=== PATIENT | female | born 1960 | race African-American/Black ===

== ENCOUNTER → 2017-11-13 | Outpatient (CLI) | payer OTHER ==
[2017-11-13 10:48] LABS: HEMATOCRIT 41.1 % (36.0-47.0); HEMOGLOBIN 13.7 g/dL (12.0-15.5); MEAN CORPUSCULAR HEMOGLOBIN 29.2 pg (27.0-33.4); MEAN CORPUSCULAR HGB CONC 33.4 g/dL (32.0-36.0); MEAN CORPUSCULAR VOLUME 88 fl (80-97); RED BLOOD COUNT 4.69 10^6/uL (3.72-5.28); RED CELL DISTRIBUTION WIDTH 14.5 % (11.5-14.0)
[2017-11-13 11:09] LABS: ALANINE AMINOTRANSFERASE 15 U/L (9-52); ALBUMIN 4.5 g/dL (3.5-5.0); ALKALINE PHOSPHATASE 88 U/L (38-126); ANION GAP 10 (5-19); ASPARTATE AMINO TRANSFERASE 22 U/L (14-36); BILIRUBIN,DIRECT 0.3 mg/dL (0.0-0.4); BILIRUBIN,TOTAL 0.4 mg/dL (0.2-1.3); BLOOD UREA NITROGEN 20 mg/dL (7-20); CALCIUM 10.7 mg/dL (8.4-10.2); CARBON DIOXIDE 28 mmol/L (22-30); CHLORIDE 104 mmol/L (98-107); CREATININE RESULT 0.97 mg/dL (0.52-1.25); Direct HDL 52 mg/dL (>40); GLUCOSE 96 mg/dL (75-110); SODIUM 142.1 mmol/L (137-145); TOTAL PROTEIN 7.7 g/dL (6.3-8.2); TRIGLYCERIDES 91 mg/dL (<150)
[2017-11-13 11:19] LABS: DIRECT LDL 80 mg/dL (<100)
[2017-11-13 11:24] LABS: ABSOLUTE EOSINOPHILS# (MANUAL) 0.2 10^3/uL (0.0-0.6); BASOPHILS % (MANUAL) 3 % (0-2); EOSINOPHILS % (MANUAL) 3 % (0-6); HYPOCHROMASIA SLIGHT; LYMPHOCYTES % (MANUAL) 47 % (13-45); POLYCHROMASIA SLIGHT; TOTAL CELLS COUNTED 100
--- NOTE | 2017-11-13 11:26 | RADIOLOGY REPORT (SQ) ---
EXAM DESCRIPTION: CHEST PA/LATERAL COMPLETED DATE/TIME: 11/13/2017 10:14 am REASON FOR STUDY: ABNORMAL WEIGHT LOSS COMPARISON: CT angio chest 12/18/2013 AP chest 07/08/2016 EXAM PARAMETERS: NUMBER OF VIEWS: two views TECHNIQUE: Digital Frontal and Lateral radiographic views of the chest acquired. RADIATION DOSE: NA LIMITATIONS: none FINDINGS: LUNGS AND PLEURA: No opacities, masses or pneumothorax. No pleural effusion. MEDIASTINUM AND HILAR STRUCTURES: No masses or contour abnormalities. HEART AND VASCULAR STRUCTURES: Heart normal size. No evidence for failure. BONES: No acute findings. HARDWARE: None in the chest. OTHER: No other significant finding. IMPRESSION: NO SIGNIFICANT RADIOGRAPHIC FINDING IN THE CHEST. TECHNICAL DOCUMENTATION: JOB ID: [id number] [employer]- All Rights Reserved
== END ==
LOC: CCC 09:32
DX: R63.4 Abnormal weight loss (principal)
CPT/HCPCS: 36415; 71020; 80053; 80061; 84443; 85025

== ENCOUNTER → 2017-12-07 | Outpatient (CLI) | payer OTHER ==
[2017-12-07 13:48] LABS: PHOSPHORUS 3.7 mg/dL (2.5-4.5)
== END ==
LOC: CCC 12:12
DX: E83.52 Hypercalcemia (principal); R74.8 Abnormal levels of other serum enzymes
CPT/HCPCS: 36415; 82306; 82310; 83735; 84100

== ENCOUNTER 2017-12-08 13:32 | Emergency (ER) | payer SELFPAY ==
--- NOTE | 2017-12-08 15:46 | ER Document Report ---
ED General <BLANCA CARLOSSA - Last Filed: 12/08/17 17:05> - General Information source: Patient, Relative TRAVEL OUTSIDE OF THE [place] IN LAST 30 DAYS: No - HPI Patient complains to provider of: depression/SI Onset: Other - few months-off depression meds(cannot afford-no insurance) <BRANDAN HERNANDEZ E - Last Filed: 12/08/17 17:40> - General Chief Complaint: Anxiety Stated Complaint: DIFFICULTY BREATHING Time Seen by Provider: 12/08/17 15:08 - Related Data Allergies/Adverse Reactions: Penicillins Allergy (Mild, Verified 12/08/17 13:58) Sulfa (Sulfonamide Antibiotics) Allergy (Mild, Verified 12/08/17 13:58) Past Medical History - Social History Smoking Status: Current Every Day Smoker Chew tobacco use (# tins/day): Yes - rarely Frequency of alcohol use: None Drug Abuse: None Family History: Hypertension Patient has suicidal ideation: No Patient has homicidal ideation: No - Past Medical History Cardiac Medical History: Reports: Hx Coronary Artery Disease, Hx Hypercholesterolemia, Hx Hypertension Denies: Hx Heart Attack Pulmonary Medical History: Denies: Hx Asthma, Hx Bronchitis, Hx COPD, Hx Pneumonia, Hx Tuberculosis Neurological Medical History: Denies: Hx Cerebrovascular Accident, Hx Seizures Endocrine Medical History: Reports: Hx Diabetes Mellitus Type 1, Hx Diabetes Mellitus Type 2 Renal/ Medical History: Denies: Hx Peritoneal Dialysis Musculoskeltal Medical History: Denies Hx Arthritis Psychiatric Medical History: Reports: Hx Anxiety, Hx Depression Past Surgical History: Reports: Hx Cardiac Catheterization - stent, Hx Coronary Stent, Hx Tubal Ligation. Denies: Hx Hysterectomy, Hx Pacemaker - Immunizations Hx Diphtheria, Pertussis, Tetanus Vaccination: Yes Hx Pneumococcal Vaccination: 11/23/00 <BRANDAN HERNANDEZ E - Last Filed: 12/08/17 17:40> Review of Systems - Review of Systems Constitutional: No symptoms reported EENT: No symptoms reported Cardiovascular: No symptoms reported Respiratory: No symptoms reported Gastrointestinal: No symptoms reported Genitourinary: No symptoms reported Skin: No symptoms reported Neurological/Psychological: Depression <BRANDAN HERNANDEZ E - Last Filed: 12/08/17 17:40> Physical Exam <LIA CARLOS - Last Filed: 01/16/18 17:05> <BRANDAN HERNANDEZ E - Last Filed: 12/08/17 17:40> - Vital signs Vitals: Temp Pulse Resp BP Pulse Ox 97.7 F 91 20 132/71 H 100 12/08/17 13:36 12/08/17 13:36 12/08/17 13:36 12/08/17 13:36 12/08/17 13:36 - Notes Notes: PHYSICAL EXAMINATION: GENERAL: Well-appearing, well-nourished and in no acute distress. HEAD: Atraumatic, normocephalic. EYES: Pupils equal round and reactive to light, extraocular movements intact, conjunctiva are normal. ENT: Nares patent, oropharynx clear without exudates. Moist mucous membranes. NECK: Normal range of motion, supple without lymphadenopathy LUNGS: Breath sounds clear to auscultation bilaterally and equal. No wheezes rales or rhonchi. HEART: Regular rate and rhythm without murmurs ABDOMEN: Soft, nontender, nondistended abdomen. No guarding, no rebound. No masses appreciated. Female : deferred Musculoskeletal: Normal range of motion, no pitting or edema. No cyanosis. NEUROLOGICAL: Cranial nerves grossly intact. Normal speech, normal gait. Normal sensory, motor exams PSYCH: Pressed poor eye contact. No current suicidal ideation or plan SKIN: Warm, Dry, normal turgor, no rashes or lesions noted. (BRANDAN HERNANDEZ) Course - Laboratory Result Diagrams: 12/08/17 16:02 12/08/17 16:02 <LIA CARLOS - Last Filed: 12/08/17 17:05> - Laboratory Result Diagrams: 12/08/17 16:02 12/08/17 16:02 <BRANDAN HERNANDEZ - Last Filed: 12/08/17 17:40> - Re-evaluation Re-evalutation: 12/08/17 17:38 Did discuss with the psych nurse. She stated that the recommendations were Depakote 250 mg p.o. twice daily and BuSpar 5 mg p.o. twice daily. I will write a 7 day prescription. She does have follow-up with private as an outpatient (BRANDAN HERNANDEZ) - Vital Signs Vital signs: Temp Pulse Resp BP Pulse Ox 97.7 F 91 20 132/71 H 100 12/08/17 13:36 12/08/17 13:36 12/08/17 13:36 12/08/17 13:36 12/08/17 13:36 - Laboratory Laboratory results interpreted by me: 12/08/17 12/08/17 12/08/17 16:02 16:02 16:02 RDW 14.4 H Lymphocytes % 50.5 H Creatinine 1.42 H Est GFR ( Amer) 47 L Est GFR (Non-Af Amer) 39 L Calcium 10.8 H Urine Urobilinogen 2.0 H Salicylates < 1.0 L Acetaminophen < 10 L Discharge <LIA CARLOS - Last Filed: 12/08/17 17:05> <BRANDAN HERNANDEZ - Last Filed: 12/08/17 17:40> - Discharge Clinical Impression: Depression, Poor sleep, Suicidal ideation, Has run out of medications Condition: Fair Disposition: HOME, SELF-CARE Instructions: Anxiety ([facility]) Additional Instructions: DEPRESSION: Your evaluation reveals that you have mental depression. While symptoms may be vague, they often include disturbance of sleep, fatigue, loss of appetite , and general loss of interest in life. While depression may be a side effect of drugs, or a reaction to a major change in your life, many cases have no known cause. If depression is acute, and related to a major loss in your life, you can expect it to clear completely with time. If you have been depressed a long time , are prone to repeated bouts of depression or low mood, or have been thinking of suicide, get help. Depression can be treated with anti-depressant medication and counselling. Long-term depression will often take a few weeks to clear, even with appropriate medication. Follow-up care is important. SUICIDAL IDEATION: Suicidal ideation is a common medical term for thoughts about suicide, which may be as detailed as a formulated plan, without the suicidal act itself. Although most people who undergo suicidal ideation do not commit suicide, some go on to make suicide attempts. The range of suicidal ideation varies greatly from fleeting to detailed planning, role playing, and unsuccessful attempts. While thoughts about suicide are common, most people do not carry out serious actions to commit suicide. Based upon your evaluation and discussion with you, we do not believe you are currently at risk to act upon your thoughts of suicide. You have agreed to return to the Emergency Department, at any time , if you feel inclined to act upon your suicidal thoughts. FOLLOW-UP CARE: You have been instructed to contact your provider at [facility] to ensure they have scheduled you for medication management and let them know you have a 7 day script. You have been provided with the outpatient resource list for additional resources. If you experience worsening or a significant change in your symptoms , notify the physician immediately or return to the Emergency Department at any time for re-evaluation. Prescriptions: Buspirone HCl [Buspar 5 mg Tablet] 1 tab PO BID #14 tab Divalproex Sodium [Depakote] 250 mg PO BID #14 tablet. Referrals: Madhu [facility] [Provider Group] - Follow up in 1 week
[2017-12-08 16:47] LABS: ABSOLUTE EOSINOPHILS # (AUTO) 0.2 10^3/uL (0.0-0.6); ABSOLUTE LYMPHOCYTES (AUTO) 3.7 10^3/uL (0.5-4.7); ABSOLUTE MONOCYTES (AUTO) 0.3 10^3/uL (0.1-1.4); ABSOLUTE NEUT (AUTO) 3.1 10^3/uL (1.7-8.2); BASOPHILS % (AUTO) 0.4 % (0-2); EOSINOPHILS % (AUTO) 2.3 % (0-6); HEMATOCRIT 40.5 % (36.0-47.0); HEMOGLOBIN 13.3 g/dL (12.0-15.5); LYMPHOCYTES % (AUTO) 50.5 % (13-45); MEAN CORPUSCULAR HEMOGLOBIN 28.9 pg (27.0-33.4); MEAN CORPUSCULAR HGB CONC 32.8 g/dL (32.0-36.0); MEAN CORPUSCULAR VOLUME 88 fl (80-97); MONOCYTES % (AUTO) 4.2 % (3-13); PLATELET COUNT 399 10^3/uL (150-450); RED BLOOD COUNT 4.59 10^6/uL (3.72-5.28); RED CELL DISTRIBUTION WIDTH 14.4 % (11.5-14.0); SEGMENTED NEUTROPHILS % (AUTO) 42.6 % (42-78); TOTAL CELLS COUNTED % (AUTO) 100 %; WHITE BLOOD COUNT 7.2 10^3/uL (4.0-10.5)
[2017-12-08 17:01] LABS: APPEARANCE,URINE SLIGHTLY-CLOUDY; BILIRUBIN,URINE NEGATIVE (NEGATIVE); COLOR,URINE YELLOW; GLUCOSE, URINE NEGATIVE (NEGATIVE); KETONES,URINE NEGATIVE (NEGATIVE); LEUKOCYTE ESTERASE,URINE NEGATIVE (NEGATIVE); NITRITE,URINE NEGATIVE (NEGATIVE); PROTEIN,URINE NEGATIVE (NEGATIVE); URINE SPECIFIC GRAVITY 1.016
[2017-12-08 17:07] LABS: URINE AMPHETAMINES SCREEN NEGATIVE; URINE BARBITURATES SCREEN NEGATIVE; URINE BENZODIAZEPINES SCREEN NEGATIVE; URINE COCAINE SCREEN NEGATIVE; URINE MARIJUANA (THC) SCREEN NEGATIVE; URINE METHADONE SCREEN NEGATIVE; URINE PHENCYCLIDINE SCREEN NEGATIVE
[2017-12-08 17:08] LABS: ALANINE AMINOTRANSFERASE 21 U/L (9-52); ALKALINE PHOSPHATASE 70 U/L (38-126); ASPARTATE AMINO TRANSFERASE 19 U/L (14-36); CARBON DIOXIDE 28 mmol/L (22-30); GLUCOSE 95 mg/dL (75-110)
[2017-12-08 17:11] LABS: ANION GAP 11 (5-19); CHLORIDE 105 mmol/L (98-107); SODIUM 144.4 mmol/L (137-145)
[2017-12-08 17:13] LABS: ALBUMIN 4.4 g/dL (3.5-5.0); BILIRUBIN,DIRECT 0.2 mg/dL (0.0-0.4); BILIRUBIN,TOTAL 0.3 mg/dL (0.2-1.3); BLOOD UREA NITROGEN 18 mg/dL (7-20); CALCIUM 10.8 mg/dL (8.4-10.2); POTASSIUM 4.1 mmol/L (3.6-5.0)
[2017-12-08 17:19] LABS: ACETAMINOPHEN < 10 ug/mL (10-30); ALCOHOL < 10 mg/dL (NONE DETECTED); SALICYLATE < 1.0 mg/dL (2.0-20.0)
--- NOTE | 2017-12-08 17:33 | PSYCHOLOGICAL NOTE ---
Psych Note - Psych Note Psych Note: Reason for Consult: Off prescribed psychiatric medication for 2-3 months, increased depression, and SI. Contact Permissions: Daughter and at bedside. Patient is a 56 year old female who presented to the ED today via family for having been off medication for 2-3 months, increased depression and SI. She stated she had been going to [facility] for outpatient services, they closed, she transitioned to [facility], and the transition was not smooth. She stated she has been off her prescribed medications (Seroquel, Abilify, Remeron, and Xanax PRN anxiety) for 2-3 months. She stated the medications were effective in managing her symptoms. She noted she received the medication assistance of [facility] so received mail order medication. She stated she had gone to [facility] for 1 visit and had been waiting on a call back, never got one, so last week contacted them, and they thought they had her in the system but did not. She acknowledged she saw Valery for therapy yesterday who submitted request for medication management. She stated she has not been sleeping and commented "even if I can just get a night of sleep." She admitted to a lot of stressors, if she were on her medication she could deal with it, not being on medication makes it seem like these things are more or worse than what they might be, and she described her mind as both blank and racing. She stated "I have this picture in my head of the ocean, where the water meets the melissa, this is my life, nothingness as far as the eye can see." She admitted she hid her MH and not having medications from family. She stated "nobody has a clue how despairing I am and I just want to be back to myself." She reported diagnoses of Major Depressive Disorder, Severe Anxiety, Bipolar and sleep problems. She noted a maternal family history of Bipolar. She denied previous MH hospitalizations. She denied current SI and admitted to having thoughts here and there since being off medications. Patient was alert and oriented to person, place, time and situation. Mood was depressed with congruent affect AEB tearful (at appropriate time) when talking about how she has held it together so long without medication. She denied current SI/HI, admitted to having thoughts here and there since being off medication the past 2-3 months, and denied previous attempts. She did not appear to be responding to internal stimuli AEB fair eye contact, staying on topic, answering questions appropriately when addressed and carrying on dialogue conversation. Thought processes were linear and organized. Conversational speech was WNL for rate, tone and prosody. Intellectual abilities are estimated to be average. Insight, judgment and impulse control are fair AEB processing thoughts and feelings. Patient gave verbal consent to include family in plan of care. She stated they could check in on her in person and by phone. Daughter and father denied any concerns for patient harming self or others. They stated she has not made any comments or gestures around them. Daughter stated the medications patient was on managed her symptoms however made her very tired and zombie-like. Daughter confirmed a maternal family history of Bipolar (patient's mother, sister, and niece). She further stated these individuals are also triggers for patient and part of the stress. Diagnosis: 296.80 (F31.9) Unspecified Bipolar and Related Disorder by History per patient 296.20 (F32.9) Unspecified Major Depressive Disorder by History per patient 300.00 (F41.9) Unspecified Anxiety Disorder by History per patient Impression/Plan: Patient is psychiatrically cleared. She does not meet [place] 122[place] IVC criteria. She denied current SI/HI (talked about wanting to get back to herself which indicated hope and future thinking) and there was no observed psychosis. Medication recommendations provided (7 day script) to aid patient in symptom management (poor sleep, increased depression, passive SI thoughts) until she can see her provider. Provided patient with an outpatient resource sheet which highlighted both MCM numbers ( explained how these services work) and also noted other agencies she can go to for medications management without insurance ([facility], [facility]). Also provided with an outpatient resource list with both MCM numbers highlighted. Patient instructed to contact [facility] first thing tomorrow to ensure a medication appointment has been made. Consulted with Dr. Stover regarding the management and care of patient. ED Physician in agreement with recommendation.
[2017-12-08 17:50] VITALS: BP 115/61
--- NOTE | 2017-12-08 20:23 | EKG REPORT ---
SEVERITY:- ABNORMAL ECG - SINUS RHYTHM LEFT ATRIAL ABNORMALITY LVH WITH SECONDARY REPOLARIZATION ABNORMALITY ANTERIOR Q WAVES, POSSIBLY DUE TO LVH : Confirmed by: Martha Carmona 08-Dec-2017 20:23:18
== END 2017-12-08 17:50 | disposition home or self-care (01) ==
LOC: ER 13:32
DX: F32.9 Major depressive disorder, single episode, unspecified (principal); G47.00 Insomnia, unspecified; F41.9 Anxiety disorder, unspecified; R06.02 Shortness of breath; F17.200 Nicotine dependence, unspecified, uncomplicated
CPT/HCPCS: 36415; 80053; 80307; 81001; 85025; 93005; 93010; 99285

== ENCOUNTER → 2017-12-08 | Outpatient (CLI) | payer OTHER ==
--- NOTE | 2017-12-08 17:49 | WOMENS IMAGING REPORT ---
EXAM DESCRIPTION: BILAT SCREENING MAMMO W/CAD COMPLETED DATE/TIME: 12/08/2017 10:32 am REASON FOR STUDY: ROUTINE SCREENING; Z12.31 Z12.31 ENCNTR SCREEN MAMMOGRAM FOR MALIGNANT NEOPLASM O F ADDIS COMPARISON: 2008 TECHNIQUE: Standard craniocaudal and mediolateral oblique views of each breast recorded using [employer] acquisition. LIMITATIONS: None. FINDINGS: Findings present which are benign by mammographic criteria. No suspicious masses, calcifi cations or architectural distortion. Pertinent benign findings: Benign calcifications bilaterally Read with the assistance of CAD. .[facility] - R2 Cenova Version 1.3 .[facility] - R2 Cenova Version 1.3 .[facility] - R2 Cenova Version 2.4 .[facility] - R2 Cenova Version 2.4 .[facility] - R2 [employer] Version 9.2 Benign mammographic findings may include one or more of the following: Smooth masses, popcorn/rim/co arse calcifications, asymmetries, post-procedure changes, and lesions with long-standing stability. IMPRESSION: BENIGN MAMMOGRAPHIC FINDINGS. BIRADS 2 BREAST DENSITY: b. There are scattered areas of fibroglandular density. BIRAD: 2 BENIGN FINDING(S) RECOMMENDATION: ROUTINE SCREENING Please consider bilateral screening tomosynthesis in November 2018 COMMENT: The patient has been notified of the results by letter per MQSA requirements. Additional no tification policies are in place for contacting patient with suspicious or incomplete findings. Quality ID #[id number]: The [employer] recommends an annual screening mammogram for women aged 40 years or over. This facility utilizes a reminder system to ensure that all patients receive reminder letters, and/or direct phone calls for appointments. This includes reminders for routine scr eening mammograms, diagnostic mammograms, or other Breast Imaging Interventions when appropriate. Th is patient will be placed in the appropriate reminder system. The [employer] (ACR) has developed recommendations for screening MRI of the breast s in certain patient populations, to be used in conjunction with mammography. Breast MRI surveillanc e may be appropriate for women with more than 20% lifetime risk of developing breast cancer as deter mined by genetic testing, significant family history of the disease, or history of mantle radiation f or Hodgkins Disease. ACR Practice Guidelines 2008. TECHNICAL DOCUMENTATION: FINDING NUMBER: (1) ASSESSMENT: (1) JOB ID: [id number] [employer]- All Rights Reserved
== END ==
LOC: WI 10:13
DX: Z12.31 Encounter for screening mammogram for malignant neoplasm of breast (principal); R63.4 Abnormal weight loss
CPT/HCPCS: 77067

== ENCOUNTER → 2017-12-11 | Outpatient (CLI) | payer OTHER ==
[2017-12-11 14:26] LABS: CALCIUM 10.9 mg/dL (8.4-10.2); MAGNESIUM 1.6 mg/dL (1.6-2.3); PHOSPHORUS 4.4 mg/dL (2.5-4.5)
== END ==
LOC: OD 13:16
DX: R74.8 Abnormal levels of other serum enzymes (principal); E83.52 Hypercalcemia
CPT/HCPCS: 36415; 82306; 82310; 83735; 84100

== ENCOUNTER 2017-12-20 11:46 | Emergency (ER) | payer SELFPAY ==
[2017-12-20 11:58] VITALS: BP 134/74
[2017-12-20] MEDS ORDERED: ALPRAZOLAM 0.5 MG TABLET PO ONE (12:35)
--- NOTE | 2017-12-20 12:36 | ER Document Report ---
ED General - General Chief Complaint: Anxiety Stated Complaint: ANXIETY ISSUES Time Seen by Provider: 12/20/17 12:23 Mode of Arrival: Ambulatory Information source: Patient Notes: 57-year-old female history of anxiety who used to be on Xanax as needed was recently seen 15 days ago for similar complaints and was written for Eriberto and Briseida presents with complaints of panic attack today. Patient notes she is anxious because of family stresses and work stressors. She denies any suicidal homicidal ideations she requested her medication be refilled as she is seeing her psychiatrist in 2 days but does not have any medication until done TRAVEL OUTSIDE OF THE [place] IN LAST 30 DAYS: No - HPI Onset: Other Onset/Duration: Intermittent Quality of pain: No pain Severity: Mild Pain Level: Denies Associated symptoms: Other Exacerbated by: Denies Relieved by: Denies Similar symptoms previously: Yes Recently seen / treated by doctor: Yes - Related Data Allergies/Adverse Reactions: Penicillins Allergy (Mild, Verified 12/20/17 11:47) Sulfa (Sulfonamide Antibiotics) Allergy (Mild, Verified 12/20/17 11:47) Past Medical History - Social History Smoking Status: Current Every Day Smoker Cigarette use (# per day): Yes Chew tobacco use (# tins/day): No Smoking Education Provided: No Frequency of alcohol use: None Drug Abuse: None Family History: Hypertension Patient has suicidal ideation: No Patient has homicidal ideation: No - Past Medical History Cardiac Medical History: Reports: Hx Coronary Artery Disease, Hx Hypercholesterolemia, Hx Hypertension Denies: Hx Heart Attack Pulmonary Medical History: Denies: Hx Asthma, Hx Bronchitis, Hx COPD, Hx Pneumonia, Hx Tuberculosis Neurological Medical History: Denies: Hx Cerebrovascular Accident, Hx Seizures Endocrine Medical History: Reports: Hx Diabetes Mellitus Type 1, Hx Diabetes Mellitus Type 2 Renal/ Medical History: Denies: Hx Peritoneal Dialysis Musculoskeltal Medical History: Denies Hx Arthritis Psychiatric Medical History: Reports: Hx Anxiety, Hx Depression Past Surgical History: Reports: Hx Cardiac Catheterization - stentx1 2012, Hx Coronary Stent, Hx Tubal Ligation. Denies: Hx Hysterectomy, Hx Pacemaker - Immunizations Hx Diphtheria, Pertussis, Tetanus Vaccination: Yes Hx Pneumococcal Vaccination: 11/23/00 Review of Systems - Review of Systems Notes: REVIEW OF SYSTEMS: CONSTITUTIONAL : Denies fever, chills, or sweats. Denies recent illness. EENT: Denies eye, ear, throat, or mouth pain or symptoms. Denies nasal or sinus congestion or discharge. Denies throat, tongue, or mouth swelling or difficulty swallowing. CARDIOVASCULAR: Denies chest pain. Denies palpitations or racing or irregular heart beat. Denies ankle edema. RESPIRATORY: Denies cough, cold, or chest congestion. Denies shortness of breath, difficulty breathing, or wheezing. GASTROINTESTINAL: Denies abdominal pain or distention. Denies nausea, vomiting , or diarrhea. Denies blood in vomitus, stools, or per rectum. Denies black, tarry stools. Denies constipation. GENITOURINARY: Denies difficulty urinating, painful urination, burning, frequency, blood in urine, or discharge. FEMALE GENITOURINARY: Denies vaginal bleeding, heavy or abnormal periods, irregular periods. Denies vaginal discharge or odor. MUSCULOSKELETAL: Denies back or neck pain or stiffness. Denies joint pain or swelling. SKIN: Denies rash, lesions or sores. HEMATOLOGIC : Denies easy bruising or bleeding. LYMPHATIC: Denies swollen, enlarged glands. NEUROLOGICAL: Denies confusion or altered mental status. Denies passing out or loss of consciousness. Denies dizziness or lightheadedness. Denies headache. Denies weakness or paralysis or loss of use of either side. Denies problems with gait or speech. Denies sensory loss, numbness, or tingling. Denies seizures. Tingling sensation feet lips hands PSYCHIATRIC: Anxious tearful ALL OTHER SYSTEMS REVIEWED AND NEGATIVE. PHYSICAL EXAMINATION: GENERAL: Well-appearing, well-nourished and in no acute distress except for anxiety and tearfulness HEAD: Atraumatic, normocephalic. EYES: Pupils equal round and reactive to light, extraocular movements intact, conjunctiva are normal. ENT: Nares patent, oropharynx clear without exudates. Moist mucous membranes. NECK: Normal range of motion, supple without lymphadenopathy LUNGS: Breath sounds clear to auscultation bilaterally and equal. No wheezes rales or rhonchi. HEART: Regular rate and rhythm without murmurs ABDOMEN: Soft, nontender, nondistended abdomen. No guarding, no rebound. No masses appreciated. Female : deferred Musculoskeletal: Normal range of motion, no pitting or edema. No cyanosis. NEUROLOGICAL: Cranial nerves grossly intact. Normal speech, normal gait. Normal sensory, motor exams PSYCH: Patient is quite tearful anxious SKIN: Warm, Dry, normal turgor, no rashes or lesions noted. Dictation was performed using [employer] voice recognition software Physical Exam - Vital signs Vitals: Temp Pulse Resp BP Pulse Ox 97.6 F 80 20 134/74 H 100 12/20/17 11:57 12/20/17 11:57 12/20/17 11:57 12/20/17 11:57 12/20/17 11:57 Course - Re-evaluation Re-evalutation: 12/20/17 12:46 I offered to refill the patient's medications which she is very happy to have done, I reviewed the previous notes and noted dosages that they use as well as a psychiatric evaluation was performed. I believe patient is stable for discharge is very happy with this plan as the patient After performing a Medical Screening Examination, I estimate there is LOW risk for any life threatening mental health issues. At this time the patient looks extremely well and has not attempted severe self harm. I have reevaluated this patient multiple times and no significant life threatening changes are noted. The patient and I have discussed the diagnosis and risks, and we agree with discharging home with close follow-up with the understanding that symptoms and presentations can change. We also discussed returning to the Emergency Department immediately if new or worsening symptoms occur. We have discussed the symptoms which are most concerning (hallucinations, thoughts or actions of self harm or harm to others) that necessitate immediate return. - Vital Signs Vital signs: Temp Pulse Resp BP Pulse Ox 97.6 F 80 20 134/74 H 100 12/20/17 11:57 12/20/17 11:57 12/20/17 11:57 12/20/17 11:57 12/20/17 11:57 Discharge - Discharge Clinical Impression: Anxiety, Panic attack, Medication refill Condition: Stable Disposition: HOME, SELF-CARE Instructions: Anxiety ([facility]) Additional Instructions: Follow up with your physician tomorrow for further care or return to the ED IMMEDIATELY if symptoms worsen or new concerns occur. If you cannot afford to follow up with your primary care physician a list of low cost clinics have been provided at the end of your discharge papers as well. Prescriptions: Buspirone HCl [Buspar 5 mg Tablet] 1 tab PO BID #15 tab Divalproex Sodium [Depakote] 250 mg PO BID #15 tablet.
== END 2017-12-20 12:43 | disposition home or self-care (01) ==
LOC: ER 11:46
DX: Z76.0 Encounter for issue of repeat prescription (principal); F41.9 Anxiety disorder, unspecified; F41.0 Panic disorder [episodic paroxysmal anxiety]; F17.210 Nicotine dependence, cigarettes, uncomplicated; I25.10 Atherosclerotic heart disease of native coronary artery without angina pectoris; I10 Essential (primary) hypertension; E11.9 Type 2 diabetes mellitus without complications; Z88.0 Allergy status to penicillin; Z88.2 Allergy status to sulfonamides; Z95.5 Presence of coronary angioplasty implant and graft
CPT/HCPCS: 99283

== ENCOUNTER → 2017-12-24 | Outpatient (CLI) | payer OTHER | LOC: CCC 14:09 | DX: E83.52 Hypercalcemia (principal) | CPT/HCPCS: 36415; 83970 ==

== ENCOUNTER → 2017-12-30 | Outpatient (CLI) | payer OTHER | LOC: CCC 10:54 | DX: E83.52 Hypercalcemia (principal) | CPT/HCPCS: 36415; 84100 ==

== ENCOUNTER → 2018-01-19 | Outpatient (CLI) | payer OTHER ==
[2018-01-19 14:55] LABS: ANION GAP 13 (5-19); BLOOD UREA NITROGEN 18 mg/dL (7-20); CALCIUM 10.8 mg/dL (8.4-10.2); CARBON DIOXIDE 27 mmol/L (22-30); CHLORIDE 105 mmol/L (98-107); GLUCOSE 107 mg/dL (75-110); PHOSPHORUS 3.4 mg/dL (2.5-4.5); POTASSIUM 4.2 mmol/L (3.6-5.0); SODIUM 144.7 mmol/L (137-145)
== END ==
LOC: CCC 13:46
DX: E83.52 Hypercalcemia (principal); F50.02 Anorexia nervosa, binge eating/purging type
CPT/HCPCS: 36415; 80048; 82306; 83036; 83735; 84100; 84443

== ENCOUNTER 2018-01-21 23:42 | Emergency (ER) | payer SELFPAY ==
--- NOTE | 2018-01-22 00:25 | ER Document Report ---
ED Psych Disorder / Suicide - General Mode of Arrival: Ambulatory Information source: Patient TRAVEL OUTSIDE OF THE [place] IN LAST 30 DAYS: No - HPI Patient complains to provider of: Hallucinating Onset: This evening Associated symptoms: Other - see notes above <MARY GERMAIN - Last Filed: 01/22/18 00:44> <JEREMIAH SANCHEZ - Last Filed: 01/22/18 03:34> - General Stated Complaint: PSYCH PROBLEM Time Seen by Provider: 01/21/18 23:50 Notes: 57 year old female with history of depression presents to the ED accompanied by her who states he found her on the floor after she took her Seroquel medication at 2130 this evening. Patient states that she had a syncopal episode 6 days ago. Patient has been vomiting today, but denies any suicidal or homicidal ideation. Patient additionally complains of visual and auditory hallucinations. Patient reports that she has been on Seroquel in the past for depression and recently started again after worsening depression. Patient is receiving mental health care by [facility]. (MARY GERMAIN) - Related Data Allergies/Adverse Reactions: Penicillins Allergy (Mild, Verified 12/20/17 11:47) Sulfa (Sulfonamide Antibiotics) Allergy (Mild, Verified 12/20/17 11:47) Past Medical History - General Information source: Patient - Social History Smoking Status: Unknown if Ever Smoked Family History: Hypertension - Past Medical History Cardiac Medical History: Reports: Hx Coronary Artery Disease, Hx Hypercholesterolemia, Hx Hypertension Denies: Hx Heart Attack Pulmonary Medical History: Denies: Hx Asthma, Hx Bronchitis, Hx COPD, Hx Pneumonia, Hx Tuberculosis Neurological Medical History: Denies: Hx Cerebrovascular Accident, Hx Seizures Endocrine Medical History: Reports: Hx Diabetes Mellitus Type 1, Hx Diabetes Mellitus Type 2 Renal/ Medical History: Denies: Hx Peritoneal Dialysis Musculoskeltal Medical History: Denies Hx Arthritis Psychiatric Medical History: Reports: Hx Anxiety, Hx Depression Past Surgical History: Reports: Hx Cardiac Catheterization - stentx1 2012, Hx Coronary Stent, Hx Tubal Ligation. Denies: Hx Hysterectomy, Hx Pacemaker - Immunizations Hx Diphtheria, Pertussis, Tetanus Vaccination: Yes Hx Pneumococcal Vaccination: 11/23/00 <MARY GERMAIN - Last Filed: 01/22/18 00:44> Review of Systems - Review of Systems Constitutional: No symptoms reported EENT: No symptoms reported Cardiovascular: No symptoms reported Respiratory: No symptoms reported Gastrointestinal: See HPI, Vomiting Genitourinary: No symptoms reported Female Genitourinary: No symptoms reported Musculoskeletal: No symptoms reported Skin: No symptoms reported Hematologic/Lymphatic: No symptoms reported Neurological/Psychological: See HPI, Hallucinations - auditory and visual. denies: Homicidal ideation, Suicidal ideation -: Yes All other systems reviewed and negative <MARY GERMAIN - Last Filed: 01/22/18 00:44> Physical Exam - General General appearance: Other - drowsy but arousable - HEENT Head: Normocephalic, Atraumatic Eyes: Normal Extraocular movements intact: Yes Pupils: PERRL - Respiratory Respiratory status: No respiratory distress Breath sounds: Normal - Cardiovascular Rhythm: Regular Heart sounds: Normal auscultation - Abdominal Inspection: Normal - Back Back: Normal - Extremities General upper extremity: Normal inspection, Normal ROM General lower extremity: Normal inspection, Normal ROM - Neurological Neuro grossly intact: Yes - Psychological Associated symptoms: Other - complaining of visual hallucinations and has insight. No suicidal or homicidal ideation.. No: Normal affect - Skin Skin Temperature: Warm Skin Moisture: Dry Skin Color: Normal <MARY GERMAIN - Last Filed: 01/22/18 00:44> - Vital signs Vitals: Resp Pulse Ox 11 L 95 01/22/18 00:06 01/22/18 00:06 Course - Laboratory Result Diagrams: 01/22/18 00:15 01/22/18 00:15 <MARY GERMAIN - Last Filed: 01/22/18 00:44> - Laboratory Result Diagrams: 01/22/18 00:15 01/22/18 00:15 <JEREMIAH SANCHEZ - Last Filed: 01/22/18 03:34> - Re-evaluation Re-evalutation: 01/22/18 03:33 Patient is drowsy but appears well. States that she is no longer having hallucinations and she would like to go home. She is not homicidal or suicidal. She is not a risk to herself or others. Patient states that she took Seroquel tonight for the first time in a while and then had hallucinations after that. Patient has insight and judgment appears intact. She is instructed not to take Seroquel anymore and follow-up with her mental health provider in the morning. Patient and are agreement with this plan. Stable for discharge. (JEREMIAH SANCHEZ) - Vital Signs Vital signs: Temp Pulse Resp BP Pulse Ox 97.6 F 14 99/49 L 97 01/22/18 01:51 01/22/18 02:30 01/22/18 02:30 01/22/18 02:30 - Laboratory Laboratory results interpreted by me: 01/22/18 01/22/18 01/22/18 00:15 00:15 00:15 RDW 15.2 H Seg Neuts % (Manual) 23 L Lymphocytes % (Manual) 63 H Abs Lymphs (Manual) 5.6 H Potassium 3.5 L BUN 33 H Est GFR ( Amer) 54 L Est GFR (Non-Af Amer) 44 L Calcium 10.4 H Urine Glucose (UA) Salicylates < 1.0 L Acetaminophen < 10 L Valproic Acid < 10.0 L 01/22/18 02:00 RDW Seg Neuts % (Manual) Lymphocytes % (Manual) Abs Lymphs (Manual) Potassium BUN Est GFR ( Amer) Est GFR (Non-Af Amer) Calcium Urine Glucose (UA) >=500 H Salicylates Acetaminophen Valproic Acid Discharge <MARY GERMAIN - Last Filed: 01/22/18 00:44> <JEREMIAH SANCHEZ - Last Filed: 01/22/18 03:34> - Discharge Clinical Impression: Medication side effect, Dehydration Condition: Stable Disposition: HOME, SELF-CARE Instructions: Dehydration ([facility]), Medication Side Effects ([facility]) Scribe Attestation: 01/22/18 03:34 I personally performed the services described in the documentation, reviewed and edited the documentation which was dictated to the scribe in my presence, and it accurately records my words and actions. (JEREMIAH SANCHEZ) Scribe Documentation - Scribe Written by Valorie:: Valorie Sloan, 01/22/2018 0055 acting as scribe for :: Jose R <MARY GERMAIN - Last Filed: 01/22/18 00:44>
[2018-01-22] MEDS ORDERED: NORMAL SALINE 500 ML IV ONE (00:27)
[2018-01-22 00:46] LABS: ALANINE AMINOTRANSFERASE 25 U/L (9-52); ALBUMIN 4.5 g/dL (3.5-5.0); ALKALINE PHOSPHATASE 77 U/L (38-126); ANION GAP 13 (5-19); ASPARTATE AMINO TRANSFERASE 22 U/L (14-36); BILIRUBIN,DIRECT 0.2 mg/dL (0.0-0.4); BILIRUBIN,TOTAL 0.2 mg/dL (0.2-1.3); BLOOD UREA NITROGEN 33 mg/dL (7-20); CALCIUM 10.4 mg/dL (8.4-10.2); CARBON DIOXIDE 25 mmol/L (22-30); CHLORIDE 103 mmol/L (98-107); GLUCOSE 109 mg/dL (75-110); POTASSIUM 3.5 mmol/L (3.6-5.0); SODIUM 140.5 mmol/L (137-145); TOTAL PROTEIN 7.1 g/dL (6.3-8.2)
[2018-01-22 00:47] LABS: MEAN CORPUSCULAR HEMOGLOBIN 28.8 pg (27.0-33.4); MEAN CORPUSCULAR HGB CONC 33.3 g/dL (32.0-36.0); MEAN CORPUSCULAR VOLUME 87 fl (80-97); PLATELET COUNT 320 10^3/uL (150-450); RED BLOOD COUNT 4.51 10^6/uL (3.72-5.28); RED CELL DISTRIBUTION WIDTH 15.2 % (11.5-14.0); WHITE BLOOD COUNT 8.6 10^3/uL (4.0-10.5)
[2018-01-22 00:50] LABS: ACETAMINOPHEN < 10 ug/mL (10-30); ALCOHOL < 10 mg/dL (NONE DETECTED)
[2018-01-22 01:04] LABS: SALICYLATE < 1.0 mg/dL (2.0-20.0)
[2018-01-22 01:15] LABS: ABSOLUTE LYMPHOCYTES# (MANUAL) 5.6 10^3/uL (0.5-4.7); ABSOLUTE MONOCYTES # (MANUAL) 0.4 10^3/uL (0.1-1.4); BASOPHILS % (MANUAL) 1 % (0-2); EOSINOPHILS % (MANUAL) 4 % (0-6); MONOCYTES % (MANUAL) 5 % (3-13); SEGMENTED NEUTROPHILS % (MAN) 23 % (42-78); TOTAL CELLS COUNTED 100
[2018-01-22 01:19] LABS: PLATELET COMMENT ADEQUATE
[2018-01-22 01:21] LABS: LYMPHOCYTES % (MANUAL) 63 % (13-45)
[2018-01-22 01:22] LABS: ANISOCYTOSIS SLIGHT; BURR CELLS SLIGHT; HYPOCHROMASIA SLIGHT; POIKILOCYTOSIS SLIGHT
[2018-01-22 02:49] LABS: APPEARANCE,URINE CLEAR; BILIRUBIN,URINE NEGATIVE (NEGATIVE); COLOR,URINE STRAW; GLUCOSE, URINE >=500 mg/dL (NEGATIVE); KETONES,URINE NEGATIVE (NEGATIVE); LEUKOCYTE ESTERASE,URINE NEGATIVE (NEGATIVE); NITRITE,URINE NEGATIVE (NEGATIVE); PROTEIN,URINE NEGATIVE (NEGATIVE); URINE SPECIFIC GRAVITY 1.005; UROBILINOGEN,URINE NEGATIVE mg/dL (<2.0)
[2018-01-22 02:56] LABS: URINE AMPHETAMINES SCREEN NEGATIVE; URINE BARBITURATES SCREEN NEGATIVE; URINE BENZODIAZEPINES SCREEN NEGATIVE; URINE COCAINE SCREEN NEGATIVE; URINE MARIJUANA (THC) SCREEN NEGATIVE; URINE METHADONE SCREEN NEGATIVE; URINE PHENCYCLIDINE SCREEN NEGATIVE
[2018-01-22 04:08] VITALS: BP 110/74
--- NOTE | 2018-01-22 06:45 | EKG REPORT ---
SEVERITY:- ABNORMAL ECG - SINUS RHYTHM LEFT ATRIAL ABNORMALITY LVH WITH SECONDARY REPOLARIZATION ABNORMALITY ANTERIOR Q WAVES, POSSIBLY DUE TO LVH : Confirmed by: Bharat Colin MD 22-Jan-2018 06:43:34
== END 2018-01-22 03:30 | disposition home or self-care (01) ==
LOC: ER 23:42
DX: R44.1 Visual hallucinations (principal); T43.595A Adverse effect of other antipsychotics and neuroleptics, initial encounter; R11.10 Vomiting, unspecified; E86.0 Dehydration; F32.9 Major depressive disorder, single episode, unspecified; I25.10 Atherosclerotic heart disease of native coronary artery without angina pectoris; I10 Essential (primary) hypertension; E11.9 Type 2 diabetes mellitus without complications; Z95.5 Presence of coronary angioplasty implant and graft; Z88.0 Allergy status to penicillin; Z88.2 Allergy status to sulfonamides
CPT/HCPCS: 93005; 99285; 96360; 36415; 80307 ×4; 85025; 80053; 81001; 80164; 93010; J7040

== ENCOUNTER 2018-02-20 07:15 | Emergency (ER) | payer OTHER ==
[2018-02-20] MEDS ORDERED: IBUPROFEN 800 MG TABLET PO ONE (07:43)
--- NOTE | 2018-02-20 08:19 | RADIOLOGY REPORT (SQ) ---
EXAM DESCRIPTION: HAND RIGHT 3 VIEWS COMPLETED DATE/TIME: 02/20/2018 8:07 am REASON FOR STUDY: hand pain COMPARISON: None. EXAM PARAMETERS: NUMBER OF VIEWS: Three views. TECHNIQUE: AP, lateral and oblique radiographic images acquired of the right hand. LIMITATIONS: None. FINDINGS: MINERALIZATION: Normal. BONES: No acute fracture or dislocation. No worrisome bone lesions. JOINTS: No effusions. SOFT TISSUES: No soft tissue swelling. No foreign body. OTHER: No other significant finding. IMPRESSION: NEGATIVE STUDY OF THE RIGHT HAND. NO RADIOGRAPHIC EVIDENCE OF ACUTE INJURY. TECHNICAL DOCUMENTATION: JOB ID: [id number] [employer]- All Rights Reserved Reading location - IP/workstation name: [email or web address]
--- NOTE | 2018-02-20 08:20 | ER Document Report ---
HPI - HPI Patient complains to provider of: right hand wrist elbow pain Onset: Other - 2 weeks Onset/Duration: Persistent Quality of pain: Achy, Other - elbow numb Severity: Severe Pain Level: 5 Context: Patient presents emergency department with complaints of right hand wrist elbow and arm pain for the past 2 weeks. She reports it started hurting after she had to open large cans with a paring knife at work. 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 She denies trauma. Reports she is right handed. Has not taken anything for pain. Associated Symptoms: None Exacerbated by: Movement Relieved by: Denies Similar symptoms previously: No Recently seen / treated by doctor: No - CONSTITUTIONAL Constitutional: DENIES: Fever, Chills - REPRODUCTIVE Reproductive: DENIES: : - MUSCULOSKELETAL Musculoskeletal: REPORTS: Extremity pain Past Medical History - General Information source: Patient - Social History Smoking Status: Current Every Day Smoker Chew tobacco use (# tins/day): No Frequency of alcohol use: None Drug Abuse: None Occupation: [employer] Family History: Hypertension Patient has suicidal ideation: No Patient has homicidal ideation: No - Past Medical History Cardiac Medical History: Reports: Hx Coronary Artery Disease, Hx Hypercholesterolemia, Hx Hypertension Denies: Hx Heart Attack Pulmonary Medical History: Denies: Hx Asthma, Hx Bronchitis, Hx COPD, Hx Pneumonia, Hx Tuberculosis Neurological Medical History: Denies: Hx Cerebrovascular Accident, Hx Seizures Endocrine Medical History: Reports: Hx Diabetes Mellitus Type 1, Hx Diabetes Mellitus Type 2 Renal/ Medical History: Denies: Hx Peritoneal Dialysis Musculoskeltal Medical History: Denies Hx Arthritis Psychiatric Medical History: Reports: Hx Anxiety, Hx Depression Past Surgical History: Reports: Hx Cardiac Catheterization - stentx1 2012, Hx Coronary Stent, Hx Tubal Ligation. Denies: Hx Hysterectomy, Hx Pacemaker - Immunizations Hx Diphtheria, Pertussis, Tetanus Vaccination: Yes Hx Pneumococcal Vaccination: 11/23/00 Vertical Provider Document - CONSTITUTIONAL Agree With Documented VS: Yes Exam Limitations: No Limitations General Appearance: WD/WN, Mild Distress - wincing when wrist/hand/elbow palpated - INFECTION CONTROL TRAVEL OUTSIDE OF THE [place] IN LAST 30 DAYS: No - HEENT HEENT: Atraumatic, Normocephalic - NECK Neck: Supple - RESPIRATORY Respiratory: Breath Sounds Normal, No Respiratory Distress - CARDIOVASCULAR Cardiovascular: Regular Rate - MUSCULOSKELETAL/EXTREMETIES Musculoskeletal/Extremeties: Tender - reports hand/wrist/elbow/upper arm ttp + tinell test/ + phalen test. negative: No Edema, Eccymosis - NEURO Level of Consciousness: Awake, Alert, Appropriate Motor/Sensory: No Motor Deficit - DERM Integumentary: Warm, Dry Adult Front & Back Diagram: 1 - reports pain with the slightest touch, no obvious deformity, no swelling/ erythema/warmth Course - Re-evaluation Re-evalutation: 02/20/18 08:34 X-ray negative no obvious deformity no swelling. Patient will be placed in a cock-up splint for suspected carpal tunnel syndrome. She will be given a work note instructed to take ibuprofen follow-up with orthopedics. - Vital Signs Vital signs: Temp Pulse Resp BP Pulse Ox 98.2 F 74 16 119/55 L 97 02/20/18 07:25 02/20/18 07:25 02/20/18 07:25 02/20/18 07:25 02/20/18 07:25 - Diagnostic Test Radiology reviewed: Image reviewed, Reports reviewed - Diagnostic report text EXAM DESCRIPTION: HAND RIGHT 3 VIEWS COMPLETED DATE/TIME: 2017 8:07 am REASON FOR STUDY: hand pain COMPARISON: None. EXAM PARAMETERS : NUMBER OF VIEWS: Three views. TECHNIQUE: AP, lateral and oblique radiographic images acquired of the right hand. LIMITATIONS: None. FINDINGS: MINERALIZATION: Normal. BONES: No acute fracture or dislocation. No worrisome bone lesions. JOINTS: No effusions. SOFT TISSUES: No soft tissue swelling. No foreign body. OTHER: No other significant finding. IMPRESSION: NEGATIVE STUDY OF THE RIGHT HAND. NO RADIOGRAPHIC EVIDENCE OF ACUTE INJURY Procedures - Immobilization Right Wrist Pre-Proc Neuro Vasc Exam: Normal Immobilizer type: Cock-up Performed by: PCT Post-Proc Neuro Vasc Exam: Unchanged from pre-exam Alignment checked and good: Yes Discharge - Discharge Clinical Impression: right hand pain, Carpal tunnel syndrome of right wrist Condition: Stable Disposition: HOME, SELF-CARE Instructions: Carpal Tunnel Syndrome ([facility]), Use of Hpuo-Crz-Zxanyvy Ibuprofen ( [facility]), Temporary Splint ([facility]) Additional Instructions: *You have been evaluated for an hand/wrist pain, suspect carpal tunnel syndrome *Rest your hand/wrist *Maintain the splint *Take ibuprofen for pain *Follow up with orthopedics-call for an appointment *Return to ED for worsening condition, changes, needs Forms: Return to Work
[2018-02-20 08:56] VITALS: BP 109/68
== END 2018-02-20 08:58 | disposition home or self-care (01) ==
LOC: ER 07:15
DX: G56.01 Carpal tunnel syndrome, right upper limb (principal); M79.641 Pain in right hand; M25.531 Pain in right wrist; M25.521 Pain in right elbow; F17.200 Nicotine dependence, unspecified, uncomplicated; I10 Essential (primary) hypertension; I25.10 Atherosclerotic heart disease of native coronary artery without angina pectoris; E11.9 Type 2 diabetes mellitus without complications; Z95.5 Presence of coronary angioplasty implant and graft
CPT/HCPCS: 99283; 73130; L3908

== ENCOUNTER 2019-05-13 10:01 | Emergency (ER) | payer BC ==
[2019-05-13] MEDS ORDERED: ASPIRIN 81 MG TABLET, CHEWABLE PO ONE (10:34)
--- NOTE | 2019-05-13 10:39 | ER Document Report ---
ED Medical Screen (RME) - General Chief Complaint: Chest Pain Stated Complaint: CHEST PAIN Time Seen by Provider: 05/13/19 10:33 Notes: Patient is a 58-year-old female history of hypertension, CAD, cardiac stent x1, high cholesterol, diabetes, anxiety, depression who presents to the emergency department with chief complaint of chest pain. Patient states she developed intermittent chest pain 1 week ago. Patient states that last night it started to become more constant. Patient states it feels like a dull throbbing across her whole chest and into the upper back. Patient also reports having heartburn over the past week. Patient denies a history of acid reflux. Patient states she has taken several nitro throughout the week which did help with her chest discomfort. Denies shortness of breath. Patient states she does smoke less th an half a pack per day. Patient denies occasional drug use. Patient denies nausea vomiting or diarrhea or recent illness. TRAVEL OUTSIDE OF THE [place] IN LAST 30 DAYS: No - Related Data Allergies/Adverse Reactions: Penicillins Allergy (Mild, Verified 02/20/18 07:19) Sulfa (Sulfonamide Antibiotics) Allergy (Mild, Verified 02/20/18 07:19) Past Medical History - Social History Chew tobacco use (# tins/day): No Frequency of alcohol use: None Drug Abuse: None - Past Medical History Cardiac Medical History: Reports: Hx Coronary Artery Disease, Hx Hypercholesterolemia, Hx Hypertension Denies: Hx Heart Attack Pulmonary Medical History: Denies: Hx Asthma, Hx Bronchitis, Hx COPD, Hx Pneumonia, Hx Tuberculosis Neurological Medical History: Denies: Hx Cerebrovascular Accident, Hx Seizures Endocrine Medical History: Reports: Hx Diabetes Mellitus Type 1, Hx Diabetes Mellitus Type 2 Renal/ Medical History: Denies: Hx Peritoneal Dialysis Musculoskeltal Medical History: Denies Hx Arthritis Psychiatric Medical History: Reports: Hx Anxiety, Hx Depression - anxiety Past Surgical History: Reports: Hx Cardiac Catheterization - stentx1 2013, Hx Coronary Stent, Hx Tubal Ligation. Denies: Hx Hysterectomy, Hx Pacemaker - Immunizations Hx Diphtheria, Pertussis, Tetanus Vaccination: Yes Physical Exam - Vital signs Vitals: Temp Pulse Resp BP Pulse Ox 98.4 F 67 18 149/73 H 97 05/13/19 10:11 05/13/19 10:11 05/13/19 10:11 05/13/19 10:11 05/13/19 10:11 - Cardiovascular Rhythm: Regular Heart sounds: Normal auscultation, S1 appreciated, S2 appreciated Course - Re-evaluation Re-evalutation: 05/13/19 10:39 I have greeted and performed a rapid initial assessment of this patient. A comprehensive ED assessment and evaluation of the patient, analysis of test results and completion of the medical decision making process will be conducted by additional ED providers. - Vital Signs Vital signs: Temp Pulse Resp BP Pulse Ox 98.4 F 67 18 149/73 H 97 05/13/19 10:11 05/13/19 10:11 05/13/19 10:11 05/13/19 10:11 05/13/19 10:11
[2019-05-13 11:07] LABS: ABSOLUTE EOSINOPHILS # (AUTO) 0.1 10^3/uL (0.0-0.6); ABSOLUTE LYMPHOCYTES (AUTO) 1.8 10^3/uL (0.5-4.7); ABSOLUTE MONOCYTES (AUTO) 0.3 10^3/uL (0.1-1.4); ABSOLUTE NEUT (AUTO) 3.6 10^3/uL (1.7-8.2); BASOPHILS % (AUTO) 0.8 % (0-2); EOSINOPHILS % (AUTO) 0.9 % (0-6); HEMOGLOBIN 12.8 g/dL (12.0-15.5); LYMPHOCYTES % (AUTO) 31.2 % (13-45); MEAN CORPUSCULAR HEMOGLOBIN 29.3 pg (27.0-33.4); MEAN CORPUSCULAR HGB CONC 33.6 g/dL (32.0-36.0); MEAN CORPUSCULAR VOLUME 87 fl (80-97); MONOCYTES % (AUTO) 4.5 % (3-13); PLATELET COUNT 348 10^3/uL (150-450); RED BLOOD COUNT 4.36 10^6/uL (3.72-5.28); RED CELL DISTRIBUTION WIDTH 14.5 % (11.5-14.0); SEGMENTED NEUTROPHILS % (AUTO) 62.6 % (42-78); TOTAL CELLS COUNTED % (AUTO) 100 %; WHITE BLOOD COUNT 5.8 10^3/uL (4.0-10.5)
[2019-05-13] MEDS ORDERED: MORPHINE SULFATE 10 MG/ML INJ IV ONE (11:46)
[2019-05-13] MEDS ORDERED: ONDANSETRON HCL INJ/PF 4 MG/2 ML SDV IV ONE (11:47)
--- NOTE | 2019-05-13 12:00 | RADIOLOGY REPORT (SQ) ---
EXAM DESCRIPTION: CHEST SINGLE VIEW COMPLETED DATE/TIME: 05/13/2019 11:31 am REASON FOR STUDY: chest tightness COMPARISON: 07/08/2016 EXAM PARAMETERS: NUMBER OF VIEWS: One view. TECHNIQUE: Single frontal radiographic view of the chest acquired. RADIATION DOSE: NA LIMITATIONS: None. FINDINGS: LUNGS AND PLEURA: No opacities, masses or pneumothorax. No pleural effusion. MEDIASTINUM AND HILAR STRUCTURES: No masses. Contour normal. HEART AND VASCULAR STRUCTURES: Cardiomegaly. BONES: No acute findings. HARDWARE: None in the chest. OTHER: No other significant finding. IMPRESSION: Cardiomegaly without acute abnormality of the lungs in AP projection. TECHNICAL DOCUMENTATION: JOB ID: [id number] [employer]- All Rights Reserved Reading location - IP/workstation name: [email or web address]
--- NOTE | 2019-05-13 12:27 | ER Document Report ---
ED General - General Chief Complaint: Chest Pain Stated Complaint: CHEST PAIN Time Seen by Provider: 05/13/19 10:33 Primary Care Provider: TAM LARSEN DO [Primary Care Provider] - Follow up in 3-5 days Mode of Arrival: Ambulatory Information source: Patient, [facility] Records Notes: Patient is a 58-year-old female history of hypertension, CAD, cardiac stent x1, high cholesterol, diabetes, anxiety, depression who presents to the emergency department with chief complaint of chest pain. Patient states she developed intermittent chest pain 1 week ago. Patient states that last night it started to become more constant. Patient states it feels like a dull throbbing across her whole chest and into the upper back. Patient also reports having heartburn over the past week. Patient denies a history of acid reflux. Patient states she has taken several nitro throughout the week which did help with her chest discomfort. Denies shortness of breath, diaphoresis, lightheadedness. Patient states she does smoke less than half a pack per day. Patient denies occasional drug use. Patient denies nausea vomiting or diarrhea or recent illness. TRAVEL OUTSIDE OF THE [place] IN LAST 30 DAYS: No - HPI Onset: Last week Onset/Duration: Gradual, Persistent, Worse Quality of pain: Achy, Throbbing Severity: Moderate Pain Level: 2 Associated symptoms: Chest pain. denies: Nonproductive cough, Productive cough, Diarrhea, Fever, Headache, Nausea, Vomiting, Shortness of breath, Slow to respond, Sore throat, Sweating, Weakness Exacerbated by: Denies Relieved by: Denies Similar symptoms previously: Yes Recently seen / treated by doctor: Yes - Related Data Allergies/Adverse Reactions: Penicillins Allergy (Mild, Verified 02/20/18 07:19) Sulfa (Sulfonamide Antibiotics) Allergy (Mild, Verified 02/20/18 07:19) Past Medical History - General Information source: Patient - Social History Smoking Status: Current Every Day Smoker Cigarette use (# per day): Yes - 10 Chew tobacco use (# tins/day): No Smoking Education Provided: Yes - Smoking cessation counseling was provided for 4 minutes at the bedside Frequency of alcohol use: None Drug Abuse: None Lives with: Alone Family History: Hypertension Patient has suicidal ideation: No Patient has homicidal ideation: No - Past Medical History Cardiac Medical History: Reports: Hx Coronary Artery Disease, Hx Hypercho lesterolemia, Hx Hypertension Denies: Hx Heart Attack Pulmonary Medical History: Denies: Hx Asthma, Hx Bronchitis, Hx COPD, Hx Pneumonia, Hx Tuberculosis Neurological Medical History: Denies: Hx Cerebrovascular Accident, Hx Seizures Endocrine Medical History: Reports: Hx Diabetes Mellitus Type 1, Hx Diabetes Mellitus Type 2 Renal/ Medical History: Denies: Hx Peritoneal Dialysis Musculoskeletal Medical History: Denies Hx Arthritis Psychiatric Medical History: Reports: Hx Anxiety, Hx Depression - anxiety Past Surgical History: Reports: Hx Cardiac Catheterization - stentx1 2012, Hx Coronary Stent, Hx Tubal Ligation. Denies: Hx Hysterectomy, Hx Pacemaker - Immunizations Hx Diphtheria, Pertussis, Tetanus Vaccination: Yes Hx Pneumococcal Vaccination: 11/23/00 Review of Systems - Review of Systems Notes: REVIEW OF SYSTEMS: CONSTITUTIONAL : Denies fever, chills, or sweats. Denies recent illness. Denies weight loss, recent hospitalizations. EENT: Denies visual changes, eye pain. Denies sore throat, oral lesions, difficulty swallowing. CARDIOVASCULAR: +chest pain. Denies palpitations. Denies lower extremity edema. RESPIRATORY: Denies cough. Denies shortness of breath, wheezing. GASTROINTESTINAL: Denies abdominal pain or distention. Denies nausea, vomiting, or diarrhea. Denies blood in vomitus, stools, or per rectum. Denies black, tarry stools. Denies constipation. GENITOURINARY: Denies difficulty urinating, painful urination, frequency, blood in urine, or vaginal discharge. MUSCULOSKELETAL: Denies back or neck pain or stiffness. Denies joint pain or s welling. SKIN: Denies rash, lesions or sores. HEMATOLOGIC : Denies easy bruising or bleeding. LYMPHATIC: Denies swollen glands. NEUROLOGICAL: Denies confusion or altered mental status. Denies loss of consciousness. Denies dizziness or lightheadedness. Denies headache. Denies weakness or paralysis. Denies problems difficulty with ambulation, slurred speech. Denies sensory loss, numbness, or tingling. Denies seizures. PSYCHIATRIC: Denies anxiety or stress. Denies depression, suicidal ideation, or homicidal ideation. Denies visual or auditory hallucinations. Physical Exam - Vital signs Vitals: Temp Pulse Resp BP Pulse Ox 98.4 F 67 18 149/73 H 97 05/13/19 10:11 05/13/19 10:11 05/13/19 10:11 05/13/19 10:11 05/13/19 10:11 - Notes Notes: PHYSICAL EXAMINATION: GENERAL: Well-appearing, well-nourished and in no acute distress. HEAD: Atraumatic, normocephalic. EYES: Pupils equal round and reactive to light, extraocular movements intact, conjunctiva are normal. ENT: Nares patent, oropharynx clear without exudates. Moist mucous membranes. NECK: Normal range of motion, supple without lymphadenopathy LUNGS: Breath sounds clear to auscultation bilaterally and equal. No wheezes rales or rhonchi. HEART: Regular rate and rhythm without murmurs ABDOMEN: Soft, nontender, nondistended abdomen. No guarding, no rebound. No masses appreciated. Female : deferred Musculoskeletal: Normal range of motion, no pitting or edema. No cyanosis. NEUROLOGICAL: Cranial nerves grossly intact. Normal speech, normal gait. Normal sensory, motor exams PSYCH: Normal mood, normal affect. SKIN: Warm, Dry, normal turgor, no rashes or lesions noted. Course - Re-evaluation Re-evalutation: Laboratory 05/13/19 05/13/19 05/13/19 10:44 10:44 10:44 WBC 5.8 RBC 4.36 Hgb 12.8 Hct 38.0 MCV 87 MCH 29.3 MCHC 33.6 RDW 14.5 H Plt Count 348 Seg Neutrophils % 62.6 Lymphocytes % 31.2 Monocytes % 4.5 Eosinophils % 0.9 Basophils % 0.8 Absolute Neutrophils 3.6 Absolute Lymphocytes 1.8 Absolute Monocytes 0.3 Absolute Eosinophils 0.1 Absolute Basophils 0.0 Sodium Cancelled Potassium Cancelled Chloride Cancelled Carbon Dioxide Cancelled Anion Gap Cancelled BUN Cancelled Creatinine Cancelled Est GFR ( Amer) Cancelled Est GFR (Non-Af Amer) Cancelled Glucose Cancelled Calcium Cancelled Total Bilirubin Cancelled Direct Bilirubin Cancelled Neonat Total Bilirubin Cancelled Neonat Direct Bilirubin Cancelled Neonat Indirect Bili Cancelled AST Cancelled ALT Cancelled Alkaline Phosphatase Cancelled Troponin I Cancelled Total Protein Cancelled Albumin Cancelled 05/13/19 05/13/19 05/13/19 11:25 11:25 12:10 WBC RBC Hgb Hct MCV MCH MCHC RDW Plt Count Seg Neutrophils % Lymphocytes % Monocytes % Eosinophils % Basophils % Absolute Neutrophils Absolute Lymphocytes Absolute Monocytes Absolute Eosinophils Absolute Basophils Sodium Cancelled Potassium Cancelled Chloride Cancelled Carbon Dioxide Cancelled Anion Gap Cancelled BUN Cancelled Creatinine Cancelled Est GFR ( Amer) Cancelled Est GFR (Non-Af Amer) Cancelled Glucose Cancelled Calcium Cancelled Total Bilirubin Cancelled Direct Bilirubin Cancelled Neonat Total Bilirubin Cancelled Neonat Direct Bilirubin Cancelled Neonat Indirect Bili Cancelled AST Cancelled ALT Cancelled Alkaline Phosphatase Cancelled Troponin I Cancelled < 0.012 Total Protein Cancelled Albumin Cancelled 05/13/19 05/13/19 12:10 14:30 WBC RBC Hgb Hct MCV MCH MCHC RDW Plt Count Seg Neutrophils % Lymphocytes % Monocytes % Eosinophils % Basophils % Absolute Neutrophils Absolute Lymphocytes Absolute Monocytes Absolute Eosinophils Absolute Basophils Sodium 139.8 Potassium 3.4 L Chloride 106 Carbon Dioxide 27 Anion Gap 7 BUN 14 Creatinine 0.71 Est GFR ( Amer) > 60 Est GFR (Non-Af Amer) > 60 Glucose 87 Calcium 9.8 Total Bilirubin 0.3 Direct Bilirubin 0.2 Neonat Total Bilirubin Not Reportable Neonat Direct Bilirubin Not Reportable Neonat Indirect Bili Not Reportable AST 24 ALT 24 Alkaline Phosphatase 67 Troponin I 0.018 Total Protein 6.8 Albumin 3.8 Chest X-Ray 05/13/19 10:34 IMPRESSION: Cardiomegaly without acute abnormality of the lungs in AP projection. Temp Pulse Resp BP Pulse Ox 98.4 F 67 18 124/75 94 05/13/19 10:11 05/13/19 10:11 05/13/19 15:00 05/13/19 15:00 05/13/19 15:00 Chest X-Ray 05/13/19 10:34 IMPRESSION: Cardiomegaly without acute abnormality of the lungs in AP projection. 05/13/19 16:09 Patient reports resolution of her chest pain. 05/14/19 12:59 atient is a 58-year-old female history of hypertension, CAD, cardiac stent x1, high cholesterol, diabetes, anxiety, depression who presents to the emergency department with chief complaint of chest pain. Patient states she developed intermittent chest pain 1 week ago. Patient states that last night it started to become more constant. Patient states it feels like a dull throbbing across her whole chest and into the upper back. Patient also reports having heartburn over the past week. Pertinent signs reviewed and within normal limits. Patient does not appear toxic or dehydrated. She is in no acute distress. Patient was placed on cardiac/vascular sonographer and EKG was obtained. EKG does show diffuse T wave inversions which were present on previous EKG. Cardiac enzymes including delta troponin were within normal limits. Chest x-ray shows cardiomegaly without evidence of acute failure. Patient was evaluated and treated as appropriate for the patient's presenting symptoms and complaint, with consideration of any critical or life threatening conditions that may be associated with their obtained history and exam as noted above. All results were discussed with patient. Patient provided the opportunity to ask questions, and express concerns. Patient was educated on treatments based on their presumed diagnosis as noted above. At this time we will discharge the patient with return precautions and follow-up recommendations. Verbal discharge instructions given a the bedside. Medication warnings reviewed. Patient is in agreement with this plan and has verbalized understanding of return precautions. After careful consideration I feel that that patient can be safely discharged from the emergency department, they were advised to followup with a primary care physician in 2-3 days. Dictation on this chart was performed using voice recognition software and may result in unintended grammatical, spelling, syntax or errors. - Vital Signs Vital signs: Temp Pulse Resp BP Pulse Ox 98.5 F 78 18 122/70 99 05/13/19 16:43 05/13/19 16:43 05/13/19 16:43 05/13/19 16:43 05/13/19 16:43 - Laboratory Result Diagrams: 05/13/19 10:44 05/13/19 12:10 Laboratory results interpreted by me: 05/13/19 05/13/19 10:44 12:10 RDW 14.5 H Potassium 3.4 L - Diagnostic Test Radiology reviewed: Image reviewed, Reports reviewed - EKG Interpretation by [facility] EKG shows normal: Sinus rhythm Rate: Normal Voltage: Consistant with LVH When compared to previous EKG there are: No significant change - T wave inversions are noted in V3 through V6 as well as 1 and aVL. These were present on an EKG performed in January 2018. Discharge - Discharge Clinical Impression: Chest pain Qualifiers: Chest pain type: unspecified Qualified Code(s): R07.9 - Chest pain, unspecified Condition: Good Disposition: HOME, SELF-CARE Instructions: Chest Pain of Unclear Cause ([facility]) Additional Instructions: You were seen today for chest pain. The exact cause of your pain is unclear. However, based on your cardiac enzyme testing, chest x-ray, and EKG it does not appear that it is from an immediately life-threatening cause at this time. Alth ough your testing here is normal is critical that you follow-up with your primary care physician for continued evaluation of this chest pain and possible stress testing. I recommended you see your physician within the next 24-48 hours to be evaluated for consideration of a stress test. Please return to emergency department immediately if you have worsening of your chest pain, shortness of breath, vomiting, become unable to exert yourself due to pain or difficulty breathing, you pass out, or have any pain that radiates into your arms, jaw, or back. Please also return if you have any additional symptoms that are concerning to you. Prescriptions: Famotidine [Pepcid 40 mg Tablet] 40 mg PO DAILY #14 tablet Forms: Smoking Cessation Education, Return to Work Referrals: TAM LARSEN, [Primary Care Provider] - Follow up in 3-5 days
[2019-05-13 12:34] LABS: ALANINE AMINOTRANSFERASE 24 U/L (9-52); ALBUMIN 3.8 g/dL (3.5-5.0); ALKALINE PHOSPHATASE 67 U/L (38-126); ANION GAP 7 (5-19); ASPARTATE AMINO TRANSFERASE 24 U/L (14-36); BILIRUBIN,DIRECT 0.2 mg/dL (0.0-0.4); BILIRUBIN,TOTAL 0.3 mg/dL (0.2-1.3); BLOOD UREA NITROGEN 14 mg/dL (7-20); CALCIUM 9.8 mg/dL (8.4-10.2); CARBON DIOXIDE 27 mmol/L (22-30); CHLORIDE 106 mmol/L (98-107); GLUCOSE 87 mg/dL (75-110); POTASSIUM 3.4 mmol/L (3.6-5.0); SODIUM 139.8 mmol/L (137-145); TOTAL PROTEIN 6.8 g/dL (6.3-8.2)
[2019-05-13] MEDS ORDERED: ONDANSETRON ODT 4 MG TAB (6 TAB/ER DISP) PO PRN (16:09)
[2019-05-13] MEDS ORDERED: HYDROCODONE/ACETAMINOPHEN 5-325 MG (6 TAB/ER DISP) PO PRN (16:09)
[2019-05-13] MEDS ORDERED: FAMOTIDINE INJ/PF 20 MG/2 ML SDV IV ONE (16:10)
[2019-05-13 16:44] VITALS: BP 122/70
--- NOTE | 2019-05-13 19:16 | EKG REPORT ---
SEVERITY:- ABNORMAL ECG - SINUS OR ECTOPIC ATRIAL RHYTHM LVH WITH SECONDARY REPOLARIZATION ABNORMALITY ANTERIOR Q WAVES, POSSIBLY DUE TO LVH ST DEPRESSION, CONSIDER ISCHEMIA, ANT-LAT LDS : Confirmed by: Aydee Dejesus MD 13-May-2019 19:15:33
== END 2019-05-13 16:43 | disposition home or self-care (01) ==
LOC: ER 10:01
DX: R07.9 Chest pain, unspecified (principal); I11.9 Hypertensive heart disease without heart failure; R12 Heartburn; I25.10 Atherosclerotic heart disease of native coronary artery without angina pectoris; E11.9 Type 2 diabetes mellitus without complications; F17.210 Nicotine dependence, cigarettes, uncomplicated; Z71.6 Tobacco abuse counseling; Z95.5 Presence of coronary angioplasty implant and graft; Z88.0 Allergy status to penicillin; Z88.2 Allergy status to sulfonamides
CPT/HCPCS: 93005; 99285; 96374; 96375; 36415; 85025; 80053; 84484; 71045; 93010; J2270; J2405; S0028

== ENCOUNTER 2019-05-24 13:30 | Emergency (ER) | payer BC ==
[2019-05-24] MEDS ORDERED: DIPH/PERTUSS(ACELL)/TETANUS VAC/PF 0.5 ML SYR (>=10YO) IM ONE (14:09)
--- NOTE | 2019-05-24 14:09 | ER Document Report ---
ED Medical Screen (RME) - General Chief Complaint: Laceration Stated Complaint: HAND LACERATION Time Seen by Provider: 05/24/19 14:03 Primary Care Provider: TAM LARSEN DO [Primary Care Provider] - Follow up as needed Mode of Arrival: Ambulatory Information source: Patient TRAVEL OUTSIDE OF THE [place] IN LAST 30 DAYS: No - HPI Notes: 05/24/19 14:06 Patient is a 58 yr old female that presents to the emergency department for chief complaint of left hand laceration from opening a can of milk this morning. no n/t in hand. tetanus is not up to date. bleeding controlled. Denies having any blood disorders revealing on blood thinners. Pain is 210, throbbing. No [id number] medications have been tried, worse with movement, better with rest. no fevers/chills ROS: Other than noted above, the 12 point review of systems was reviewed with the patient and were negative, all pertinent findings are included in the HPI. PHYSICAL EXAMINATION: Vital signs reviewed. GENERAL: Well-appearing, well-nourished and in no acute distress. CV: Heart regular rate and rhythm LUNGS: No respiratory distress Musculoskeletal: Normal range of motion NEUROLOGICAL: Normal speech SKIN: 1cm linear laceration to right volar aspect of hand, distal to thumb with puncture wound lateral PSYCH: Normal mood, normal affect. MDM: Patient seen and examined for rapid initial assessment. Vital signs reviewed. A comprehensive ED assessment and evaluation of the patient, analysis of test results and completion of the medical decision making process will be conducted by additional ED providers. *Note is created using voice recognition software and may contain spelling, syntax or grammatical errors. - Related Data Allergies/Adverse Reactions: Penicillins Allergy (Mild, Verified 02/20/18 07:19) Sulfa (Sulfonamide Antibiotics) Allergy (Mild, Verified 02/20/18 07:19) Past Medical History - Social History Chew tobacco use (# tins/day): No Frequency of alcohol use: None Drug Abuse: None - Past Medical History Cardiac Medical History: Reports: Hx Coronary Artery Disease, Hx Hypercholesterolemia, Hx Hypertension Denies: Hx Heart Attack Pulmonary Medical History: Denies: Hx Asthma, Hx Bronchitis, Hx COPD, Hx Pneumonia, Hx Tuberculosis Neurological Medical History: Denies: Hx Cerebrovascular Accident, Hx Seizures Endocrine Medical History: Reports: Hx Diabetes Mellitus Type 1, Hx Diabetes Mellitus Type 2 Renal/ Medical History: Denies: Hx Peritoneal Dialysis Musculoskeltal Medical History: Denies Hx Arthritis Psychiatric Medical History: Reports: Hx Anxiety, Hx Depression - anxiety Past Surgical History: Reports: Hx Cardiac Catheterization - stentx1 2012, Hx Coronary Stent, Hx Tubal Ligation. Denies: Hx Hysterectomy, Hx Pacemaker - Immunizations Hx Diphtheria, Pertussis, Tetanus Vaccination: Yes Physical Exam - Vital signs Vitals: Temp Pulse Resp BP Pulse Ox 98.5 F 65 18 115/68 97 05/24/19 13:35 05/24/19 13:35 05/24/19 13:35 05/24/19 13:35 05/24/19 13:35 Course - Vital Signs Vital signs: Temp Pulse Resp BP Pulse Ox 98.5 F 65 18 115/68 97 05/24/19 13:35 05/24/19 13:35 05/24/19 13:35 05/24/19 13:35 05/24/19 13:35 Doctor's Discharge - Discharge Referrals: TAM LARSEN, [Primary Care Provider] - Follow up as needed
--- NOTE | 2019-05-24 15:07 | RADIOLOGY REPORT (SQ) ---
EXAM DESCRIPTION: HAND LEFT 2 VIEWS COMPLETED DATE/TIME: 05/24/2019 2:38 pm REASON FOR STUDY: hand lac, r/o fx or fb COMPARISON: None. EXAM PARAMETERS: NUMBER OF VIEWS: Two view. TECHNIQUE: AP and lateral radiographic images acquired of the left hand. LIMITATIONS: None. FINDINGS: MINERALIZATION: Normal. BONES: No acute fracture or dislocation. No worrisome bone lesions. JOINTS: No effusions. SOFT TISSUES: No soft tissue swelling. No foreign body. There is soft tissue gas from laceration ov er the left hand between the thumb and index finger OTHER: No other significant finding. IMPRESSION: There is soft tissue gas from laceration over the left hand between the thumb and index finger. No retained radiopaque foreign body TECHNICAL DOCUMENTATION: JOB ID: [id number] [employer]- All Rights Reserved Reading location - IP/workstation name: [email or web address]
[2019-05-24] MEDS ORDERED: LIDOCAINE 1% INJ-PF (10 MG/ML) 30 ML SDV INJ ONE (17:45)
[2019-05-24 18:22] VITALS: BP 134/73
--- NOTE | 2019-05-24 19:18 | ER Document Report ---
ED General - General Chief Complaint: Laceration Stated Complaint: HAND LACERATION Time Seen by Provider: 05/24/19 14:03 Primary Care Provider: TAM LARSEN DO [Primary Care Provider] - Follow up as needed Mode of Arrival: Ambulatory TRAVEL OUTSIDE OF THE [place] IN LAST 30 DAYS: No - HPI Notes: Patient is a 58-year-old, [id number] female who presents to the emergency department for evaluation of laceration to her left hand. She was trying to open a can of milk with a knife when she stepped through and cut the palmar aspect of her left hand. She denies any numbness or tingling. Is unsure of tetanus status. - Related Data Allergies/Adverse Reactions: Penicillins Allergy (Mild, Verified 02/20/18 07:19) Sulfa (Sulfonamide Antibiotics) Allergy (Mild, Verified 02/20/18 07:19) Past Medical History - General Information source: Patient - Social History Smoking Status: Current Every Day Smoker Chew tobacco use (# tins/day): No Frequency of alcohol use: None Drug Abuse: None Family History: Hypertension Patient has suicidal ideation: No Patient has homicidal ideation: No - Past Medical History Cardiac Medical History: Reports: Hx Coronary Artery Disease, Hx Hypercholesterolemia, Hx Hypertension Denies: Hx Heart Attack Pulmonary Medical History: Denies: Hx Asthma, Hx Bronchitis, Hx COPD, Hx Pneumonia, Hx Tuberculosis Neurological Medical History: Denies: Hx Cerebrovascular Accident, Hx Seizures Endocrine Medical History: Reports: Hx Diabetes Mellitus Type 2 Renal/ Medical History: Denies: Hx Peritoneal Dialysis Musculoskeletal Medical History: Denies Hx Arthritis Psychiatric Medical History: Reports: Hx Anxiety, Hx Depression - anxiety Past Surgical History: Reports: Hx Cardiac Catheterization - stentx1 2012, Hx Coronary Stent, Hx Tubal Ligation. Denies: Hx Hysterectomy, Hx Pacemaker - Immunizations Hx Diphtheria, Pertussis, Tetanus Vaccination: Yes Hx Pneumococcal Vaccination: 11/23/00 Review of Systems - Review of Systems Constitutional: No symptoms reported EENT: No symptoms reported Cardiovascular: No symptoms reported Respiratory: No symptoms reported Gastrointestinal: No symptoms reported Genitourinary: No symptoms reported Musculoskeletal: No symptoms reported Skin: See HPI Neurological/Psychological: See HPI Physical Exam - Vital signs Vitals: Temp Pulse Resp BP Pulse Ox 98.5 F 65 18 115/68 97 05/24/19 13:35 05/24/19 13:35 05/24/19 13:35 05/24/19 13:35 05/24/19 13:35 - Notes Notes: This is a pleasant 58-year-old female who appears her stated age in no acute distress. Physical exam is limited to the area of chief complaint. Examination of the left hand feels 2 small lacerations on the palmar aspect, one in the inter-web space between the thumb and index finger, the second approximately 2- 1/2 cm medially. The lacerations are 1-1/2 and 1 cm in length respectively. The patient has full range of motion of the thumb, and all of the joints of the fingers, including the MCP, PIP, DIP. Sensation is intact, capillary refill is brisk. Radial pulse 2+. No active bleeding. Course - Re-evaluation Re-evalutation: 05/24/19 19:16 She presented to the emergency department for evaluation. She was initially evaluated through triage. X-ray was performed and showed soft tissue air but no obvious foreign body. The wound was very thoroughly cleansed, irrigated, closed by SENIOR PROGRAM PLANNER Micheline Bernal. Please see her separate procedure note. Patient tolerated this well. She is to have sutures removed in 7 days. Keep wound clean with soap and water. Avoid submerging. Watch for signs of infection. Return to the ED with worsening or new concerning symptoms of any sort. - Vital Signs Vital signs: Temp Pulse Resp BP Pulse Ox 97.8 F 62 16 134/73 H 96 05/24/19 18:19 05/24/19 18:19 05/24/19 18:19 05/24/19 18:19 05/24/19 18:19 Discharge - Discharge Clinical Impression: Laceration of left hand Qualifiers: Encounter type: initial encounter Foreign body presence: without foreign body Qualified Code(s): S61.412A - Laceration without foreign body of left hand, initial encounter Condition: Stable Disposition: HOME, SELF-CARE Instructions: Antibiotic Ointment Protection ([facility]), Laceration Care ([facility]), Tetanus Immunization Given ([facility]) Additional Instructions: Keep wound clean with soap and water. Avoid submerging in standing water. Have sutures removed in 7 to 10 days. If you develop increased redness, drainage, fevers, or any other new or concerning symptoms, return immediately to the emergency department for reevaluation. Referrals: TAM LARSEN, [Primary Care Provider] - Follow up as needed
--- NOTE | 2019-05-24 19:18 | ER Document Report ---
Procedures - Laceration/Wound Repair Left hand #1 Wound length (cm): 1 Wound's Depth, Shape: Superficial, Irregular Laceration pre-procedure: Sterile PPE donned Anesthetic type: 1% Lidocaine Wound explored: Clean Wound Debrided: Minimal Wound Repaired With: Sutures Suture Size/Type: 4:0, Nylon Post-procedure wound care: Sterile dressing applied Post-procedure NV exam normal: Yes Complications: No Left Hand Wound length (cm): 1.5 Wound's Depth, Shape: Irregular Laceration pre-procedure: Sterile PPE donned Anesthetic type: 1% Lidocaine Wound explored: Clean Wound Debrided: Minimal Wound Repaired With: Sutures Suture Size/Type: 4:0 Number of Sutures: 3 Layer Closure?: No Post-procedure wound care: Sterile dressing applied Post-procedure NV exam normal: Yes Complications: No
== END 2019-05-24 19:37 | disposition home or self-care (01) ==
LOC: ER 13:30
DX: S61.412A Laceration without foreign body of left hand, initial encounter (principal); W26.0XXA Contact with knife, initial encounter; Y93.89 Activity, other specified; Z88.0 Allergy status to penicillin; Z88.2 Allergy status to sulfonamides; F17.200 Nicotine dependence, unspecified, uncomplicated; I10 Essential (primary) hypertension; I25.10 Atherosclerotic heart disease of native coronary artery without angina pectoris; E11.9 Type 2 diabetes mellitus without complications; Z95.5 Presence of coronary angioplasty implant and graft
CPT/HCPCS: 90471; 90715; 99283

== ENCOUNTER 2020-05-23 20:45 | Observation (INO) | payer BC ==
[2020-05-23 21:17] LABS: ABSOLUTE LYMPHOCYTES (AUTO) 2.7 10^3/uL (0.5-4.7); ABSOLUTE MONOCYTES (AUTO) 0.4 10^3/uL (0.1-1.4); ABSOLUTE NEUT (AUTO) 1.6 10^3/uL (1.7-8.2); BASOPHILS % (AUTO) 0.8 % (0-2); EOSINOPHILS % (AUTO) 0.3 % (0-6); HEMATOCRIT 34.4 % (36.0-47.0); HEMOGLOBIN 11.6 g/dL (12.0-15.5); LYMPHOCYTES % (AUTO) 57.6 % (13-45); MEAN CORPUSCULAR HEMOGLOBIN 29.2 pg (27.0-33.4); MEAN CORPUSCULAR HGB CONC 33.9 g/dL (32.0-36.0); MEAN CORPUSCULAR VOLUME 86 fl (80-97); PLATELET COUNT 303 10^3/uL (150-450); RED BLOOD COUNT 3.98 10^6/uL (3.72-5.28); RED CELL DISTRIBUTION WIDTH 14.3 % (11.5-14.0); SEGMENTED NEUTROPHILS % (AUTO) 33.3 % (42-78); TOTAL CELLS COUNTED % (AUTO) 100 %; WHITE BLOOD COUNT 4.7 10^3/uL (4.0-10.5)
[2020-05-23 21:28] LABS: ALBUMIN 3.6 g/dL (3.5-5.0); ALKALINE PHOSPHATASE 73 U/L (38-126); ANION GAP 6 (5-19); ASPARTATE AMINO TRANSFERASE 26 U/L (14-36); BILIRUBIN,DIRECT 0.1 mg/dL (0.0-0.4); BILIRUBIN,TOTAL 0.4 mg/dL (0.2-1.3); BLOOD UREA NITROGEN 23 mg/dL (7-20); CALCIUM 9.3 mg/dL (8.4-10.2); CARBON DIOXIDE 27 mmol/L (22-30); CHLORIDE 101 mmol/L (98-107); CREATINE KINASE 190 U/L (30-135); GLUCOSE 95 mg/dL (75-110); POTASSIUM 3.1 mmol/L (3.6-5.0)
[2020-05-23 21:43] LABS: CREATINE KINASE MB 1.04 ng/mL (<4.55)
[2020-05-23 21:58] LABS: TROPONIN I 0.076 ng/mL
[2020-05-23] MEDS ORDERED: NORMAL SALINE 1000 ML 1,000 ML IV ONE (22:58)
[2020-05-23] MEDS ORDERED: ENOXAPARIN SODIUM INJ 80 MG/0.8 ML DISP.SYRIN SUBCUT ONE (23:02)
--- NOTE | 2020-05-23 23:07 | ER Document Report ---
ED General - General Chief Complaint: Passed Out Prior to Arrival Stated Complaint: DIZZINESS Time Seen by Provider: 05/23/20 22:01 Primary Care Provider: TAM LARSEN DO [Primary Care Provider] - Follow up as needed Notes: 59-year-old female presents emergency department complaining of a near syncopal episode earlier this evening while she was changing her clothes ready for bed around 730 this evening. States that she fell to the ground but did not completely pass out. Recalls everything that happens. Did not hit her head. States that prior to that she had been exhausted all day long and has actually been having some intermittent centralized chest pressure that she describes as a dull ache for the past week. States it is gone now. Patient was brought in by EMS, they did give her 324 mg of aspirin. States she is supposed to be taking a daily baby aspirin but does not. States she had cardiac stenting performed back in 2013, had a stress test approximately 6 months ago that she thinks was normal because "they did not do anything else.". TRAVEL OUTSIDE OF THE [place] IN LAST 30 DAYS: No - Related Data Allergies/Adverse Reactions: Penicillins Allergy (Mild, Verified 02/20/18 07:19) Sulfa (Sulfonamide Antibiotics) Allergy (Mild, Verified 02/20/18 07:19) Past Medical History - General Information source: Patient - Social History Smoking Status: Current Every Day Smoker Chew tobacco use (# tins/day): Yes Frequency of alcohol use: None Drug Abuse: None Family History: CAD, Hypertension Patient has homicidal ideation: No - Past Medical History Cardiac Medical History: Reports: Hx Coronary Artery Disease, Hx Hypercholesterolemia, Hx Hypertension Denies: Hx Heart Attack Pulmonary Medical History: Denies: Hx Asthma, Hx Bronchitis, Hx COPD, Hx Pneumonia, Hx Tuberculosis Neurological Medical History: Denies: Hx Cerebrovascular Accident, Hx Seizures Endocrine Medical History: Reports: Hx Diabetes Mellitus Type 1, Hx Diabetes Mellitus Type 2 Renal/ Medical History: Denies: Hx Peritoneal Dialysis Musculoskeletal Medical History: Denies Hx Arthritis Psychiatric Medical History: Reports: Hx Anxiety, Hx Depression - anxiety Past Surgical History: Reports: Hx Cardiac Catheterization - stentx1 2012, Hx Coronary Stent, Hx Tubal Ligation. Denies: Hx Hysterectomy, Hx Pacemaker - Immunizations Hx Diphtheria, Pertussis, Tetanus Vaccination: Yes Hx Pneumococcal Vaccination: 01/01/01 Review of Systems - Review of Systems Constitutional: See HPI, Malaise, Weakness EENT: No symptoms reported Cardiovascular: See HPI, Chest pain, Syncope Respiratory: No symptoms reported Gastrointestinal: No symptoms reported Neurological/Psychological: See HPI -: Yes All other systems reviewed and negative Physical Exam - Vital signs Vitals: Resp Pulse Ox 19 95 05/23/20 20:57 05/23/20 20:57 Interpretation: Hypotensive - Notes Notes: GENERAL: Alert, interacts well. No acute distress. HEAD: Normocephalic, atraumatic EYES: Pupils equal, round and reactive to light, extraocular movements intact. ENT: Oral mucosa moist, tongue midline. NECK: Full range of motion, supple, trachea midline. LUNGS: Clear to auscultation bilaterally, no wheezes, rales or rhonchi, no respiratory distress. HEART: Regular rate and rhythm, no murmurs, gallops, rubs. ABDOMEN: Soft, nontender, nondistended, bowel sounds present in all 4 quadrants. EXTREMITIES: Moves all 4 extremities spontaneously, no edema, radial and dorsalis pedis pulses 2/4 bilaterally. No cyanosis. NEUROLOGICAL: Alert and oriented x3, normal speech, biceps and patellar DTRs 2+ bilaterally. PSYCH: Normal mood, normal affect. SKIN: Warm, Dry, normal turgor, no rashes or lesions noted. Course - Re-evaluation Re-evalutation: 05/23/20 23:09 CBC shows mild anemia with a hemoglobin 11.6, CMP shows slight low potassium at 3.1, indeterminate troponin at 0.076, EKG has some T wave inversions and ST segment depressions that are unchanged for the past year. Patient is currently chest pain-free. Given her cardiac history I have discussed the patient with Dr. Salguero for admission to the hospital, he agrees with bringing the patient in in observation status. Patient agrees to this as well. Patient is chest pain-free. She does have some hypotension, it worsens with sitting up however she is not symptomatic with it currently. She will be given another liter of fluids. - Vital Signs Vital signs: Temp Pulse Resp BP Pulse Ox 98.7 F 57 L 12 99/54 L 97 05/23/20 21:05 05/23/20 21:03 05/23/20 21:00 05/23/20 21:03 05/23/20 21:02 - Laboratory Result Diagrams: 05/23/20 20:56 05/23/20 20:56 Laboratory results interpreted by me: 05/23/20 05/23/20 20:56 20:56 Hgb 11.6 L Hct 34.4 L RDW 14.3 H Lymph % (Auto) 57.6 H Absolute Neuts (auto) 1.6 L Seg Neutrophils % 33.3 L Sodium 134.0 L Potassium 3.1 L BUN 23 H Est GFR ( Amer) 58 L Est GFR (MDRD) Non-Af 48 L Creatine Kinase 190 H - EKG Interpretation by Me Additional EKG results interpreted by me: 05/23/20 23:12 EKG shows sinus bradycardia at a rate of 59, normal axis, normal intervals, no ST segment elevations, there are ST segment depressions in V4, V5 and V6 which are essentially unchanged since 05/13/2019, same with the T wave inversions in V1, aVL and V3 through V6, there is LVH per my interpretation. Discharge - Discharge Clinical Impression: Chest pain, rule out acute myocardial infarction Condition: Good Disposition: ADMITTED OBSERVATION Admitting Provider: Jose M (Hospitalist) Unit Admitted: Telemetry Referrals: TAM LARSEN DO [Primary Care Provider] - Follow up as needed
[2020-05-23 23:19] LABS: APPEARANCE,URINE CLOUDY; BILIRUBIN,URINE NEGATIVE (NEGATIVE); GLUCOSE, URINE NEGATIVE (NEGATIVE); KETONES,URINE NEGATIVE (NEGATIVE); LEUKOCYTE ESTERASE,URINE TRACE (NEGATIVE); NITRITE,URINE NEGATIVE (NEGATIVE); PROTEIN,URINE 30 mg/dL (NEGATIVE); URINE SPECIFIC GRAVITY 1.019
[2020-05-23 23:20] LABS: COLOR,URINE YELLOW
[2020-05-23] MEDS ORDERED: DEXTROSE 50%-WATER 25 GM/50 ML DISP.SYRIN IV PRN ×2 (23:50)
[2020-05-23] MEDS ORDERED: IPRATROPIUM/ALBUTEROL 0.5-2.5 MG/3 ML AMPUL NEB PRN (23:50)
[2020-05-23] MEDS ORDERED: GLUCAGON,HUMAN RECOMB 1 MG INJ SUBCUT PRN (23:50)
[2020-05-23] MEDS ORDERED: DEXTROSE 40% GEL 15 GM TUBE PO PRN ×2 (23:50)
[2020-05-24] MEDS ORDERED: DEXTROSE 40% GEL 15 GM TUBE PO PRN ×2 (00:10)
[2020-05-24] MEDS ORDERED: GLUCAGON,HUMAN RECOMB 1 MG INJ IM PRN (00:10)
[2020-05-24] MEDS ORDERED: DEXTROSE 50%-WATER 25 GM/50 ML DISP.SYRIN IV PRN ×2 (00:10)
[2020-05-24] MEDS ORDERED: METOPROLOL TARTRATE PF/INJ 5 MG/5 ML SDV IV PRN (00:11)
[2020-05-24] MEDS ORDERED: HYDRALAZINE HCL INJ/PF 20 MG/1 ML SDV IV PRN (00:11)
--- NOTE | 2020-05-24 00:42 | PDOC H&P ---
History of Present Illness Admission Date/PCP: 05/23/20 23:29 TAM LARSEN DO History of Present Illness: CANDE MENENDEZ is a 59 year old female past medical history of CAD status p ost PCI x1 stent placement in 2013, hypertension, bipolar depression, hyperlipidemia, tobacco abuse, presented to ED complaining of an episode of passing out. Patient stating that she has been feeling very weak lately but today when getting ready to bed and changing her clothes around 7:30 PM she suddenly felt very weak and fell to the ground, patient called out her daughter who helped her up, and called EMS, patient was given aspirin 324 mg in route to the hospital. As per daughter patient did not lose consciousness and did not have any convulsions or sustain any trauma. She was alert and oriented and answering questions appropriately. Patient denies having any palpitation, shortness of breath or any lightheadedness prior to fall. Patient also complaining of left-sided, dull, nonradiating, chronic chest pain associated with dyspnea on exertion which has not changed recently. Denies any headache, vision changes, numbness, tingling, any focal weakness, nausea, shortness of breath, diarrhea, abdominal pain, recent weight gain, orthopnea, PND, or any urinary symptoms. Denies any recent hospitalization or immobility, denies any lower extremity swelling or pain, denies history of any arrhythmia or DVTs in the past. Her qc tech is Hosea Marmolejo and she had a stress test about 6 months ago which was reported as negative. In the ED she was noted to be hypotensive, with mildly elevated troponins and unchanged EKG. Hospitalist was consulted for admission. Past Medical History Cardiac Medical History: Reports: Coronary Artery Disease, Hyperlipidema, Hypertension Denies: Myocardial Infarction Pulmonary Medical History: Denies: Asthma, Bronchitis, Chronic Obstructive Pulmonary Disease (COPD), Pneumonia, Tuberculosis Neurological Medical History: Denies: Seizures Endocrine Medical History: Reports: Diabetes Mellitus Type 1, Diabetes Mellitus Type 2 Musculoskeltal Medical History: Denies: Arthritis Psychiatric Medical History: Reports: Depression - anxiety Hematology: Reports: Anemia Past Surgical History Past Surgical History: Reports: Cardiac Catheterization - stentx1 2012, Coronary Stent, Tubal Ligation Denies: Hysterectomy, Pacemaker Social History Smoking Status: Current Every Day Smoker Frequency of Alcohol Use: None Hx Recreational Drug Use: No Hx Prescription Drug Abuse: No Family History Family History: CAD, Hypertension Parental Family History Reviewed: Yes Children Family History Reviewed: Yes Sibling(s) Family History Reviewed.: Yes Medication/Allergy Home Medications: Aspirin [Aspirin 81 mg Chewable Tablet] 81 mg PO DAILY 06/25/14 Amlodipine Besylate 1 tab PO DAILY 12/20/17 Atorvastatin Calcium 40 mg PO QHS 12/20/17 Isosorbide Mononitrate [Imdur 60 mg Tablet.er] 90 mg PO DAILY 12/20/17 Lisinopril/Hydrochlorothiazide [Lisinopril-Hctz 20-25 mg Tab] 1 tab PO DAILY 12/20/17 Metformin HCl [Glucophage 500 mg Tablet] 500 mg PO BIDACBS 12/20/17 Famotidine [Pepcid 40 mg Tablet] 40 mg PO DAILY #14 tablet 05/13/19 Allergies/Adverse Reactions: Penicillins Allergy (Mild, Verified 02/20/18 07:19) Sulfa (Sulfonamide Antibiotics) Allergy (Mild, Verified 02/20/18 07:19) Review of Systems Review of Systems: as per hpi Physical Exam Vital Signs: Temp Pulse Resp BP Pulse Ox 98.7 F 57 L 19 96/51 L 97 05/23/20 21:05 05/23/20 21:03 05/24/20 00:01 05/24/20 00:01 05/24/20 00:01 Intake & Output 05/22/20 05/23/20 05/24/20 06:59 06:59 06:59 Weight 68.039 kg General appearance: PRESENT: no acute distress, well-developed, well-nourished Head exam: PRESENT: atraumatic, normocephalic Eye exam: PRESENT: conjunctiva pink, EOMI, PERRLA. ABSENT: scleral icterus Neck exam: ABSENT: carotid bruit, JVD, lymphadenopathy, thyromegaly Respiratory exam: PRESENT: clear to auscultation carly. ABSENT: rales, rhonchi, wheezes Cardiovascular exam: PRESENT: RRR. ABSENT: diastolic murmur, rubs, systolic murmur GI/Abdominal exam: PRESENT: normal bowel sounds, soft. ABSENT: distended, g uarding, mass, organolmegaly, rebound, tenderness Neurological exam: PRESENT: alert, awake, oriented to person, oriented to place, oriented to time, oriented to situation, CN II-XII grossly intact. ABSENT: motor sensory deficit Skin exam: PRESENT: dry, intact, warm. ABSENT: cyanosis, rash Results Laboratory Results: 05/23/20 20:56 05/23/20 20:56 05/23/20 05/23/20 05/23/20 20:56 20:56 23:03 WBC 4.7 RBC 3.98 Hgb 11.6 L Hct 34.4 L MCV 86 MCH 29.2 MCHC 33.9 RDW 14.3 H Plt Count 303 Seg Neutrophils % 33.3 L Sodium 134.0 L Potassium 3.1 L Chloride 101 Carbon Dioxide 27 Anion Gap 6 BUN 23 H Creatinine 1.17 Est GFR ( Amer) 58 L Glucose 95 Calcium 9.3 Total Bilirubin 0.4 AST 26 Alkaline Phosphatase 73 Total Protein 7.0 Albumin 3.6 Urine Color YELLOW Urine Appearance CLOUDY Urine pH 5.0 Ur Specific Alfred 1.019 Urine Protein 30 H Urine Glucose (UA) NEGATIVE Urine Ketones NEGATIVE Urine Blood NEGATIVE Urine Nitrite NEGATIVE Ur Leukocyte Esterase TRACE H Urine WBC (Auto) 9 Urine RBC (Auto) 1 05/23/20 05/23/20 20:56 20:56 Creatine Kinase 190 H CK-MB (CK-2) 1.04 Troponin I 0.076 Assessment and Plan - Diagnosis (1) Pre-syncope Is this a current diagnosis for this admission?: Yes Plan: Noted to be hypotensive on admission. Orthostatic vitals negative. Denies any nausea vomiting or diarrhea. Denies any focal neurological symptoms. Denies any history of seizure disorder. Negative focal neurological deficits on physical examination. Likely polypharmacy. Patient home medication of metoprolol, lisinopril, hydrochlorothiazide, isosorbide mononitrate. Admit to telemetry, CT head, fall and seizure precautions, cautious volume resuscitation guided by volume status, reconcile antihypertensive meds. (2) Chest pain Qualifiers: Ischemic chest pain type: stable angina pectoris Is this a current diagnosis for this admission?: Yes Plan: History of stable angina, complaining of left-sided dull chest pain worse on exertion better with rest. Denies any change in pattern. Mildly elevated troponins. EKG no acute changes. CXR pending. Admit to telemetry, chest x-ray, trend troponins, antiplatelets, statins, sublingual nitroglycerin as needed, IV morphine as needed. Cardiology consulted. Patient may need stress test for further risk stratification. (3) CAD (coronary artery disease) Qualifiers: Coronary Disease-Associated Artery/Lesion type: jackson artery Is this a current diagnosis for this admission?: Yes Plan: History of CAD status post PCI x1 stent in 2013. [employer] Dr. Hosea Marmolejo. Home meds are aspirin, statins, beta-blockers and SISSY. Him home meds. Adjust meds as needed. Monitor vitals. (4) Hypotension Is this a current diagnosis for this admission?: Yes Plan: Orthostatic vitals negative. Denies any nausea vomiting or diarrhea. Likely polypharmacy. Admits to telemetry, monitor vitals, cautious volume restriction variable volume status, reconcile antihypertensives. (5) Hyperlipidemia Is this a current diagnosis for this admission?: Yes Plan: History of hyperlipidemia. Takes statin at home. Resume home meds. Diet and lifestyle modification recommended. (6) Bipolar depression Is this a current diagnosis for this admission?: Yes Plan: Denies any suicidal homicidal ideation. Takes Latuda, fluoxetine and trazodone. Resume home meds. Adjustments noted. Outpatient PCP and psychiatry follow-up. (7) Anxiety Is this a current diagnosis for this admission?: Yes Plan: Resume home meds. Outpatient PCP follow-up. (8) Tobacco abuse Is this a current diagnosis for this admission?: Yes Plan: Counseled on quitting. Nicotine patch will be provided. (9) Hypokalemia Is this a current diagnosis for this admission?: Yes Plan: No acute EKG change. Admit to telemetry. IV potassium. Repeat BMP in the morning.
[2020-05-24] MEDS ORDERED: NITROGLYCERIN 0.4 MG/TAB 25 TAB/BOTTLE SL PRN (00:54)
[2020-05-24] MEDS ORDERED: MORPHINE SULFATE 10 MG/ML INJ IV PRN (00:54)
[2020-05-24] MEDS ORDERED: POTASSI CL 20 MEQ/50 ML RIDER 20 MEQ/50 ML RTUPB IV ONE (01:21)
[2020-05-24 06:35] LABS: ABSOLUTE LYMPHOCYTES (AUTO) 1.7 10^3/uL (0.5-4.7); ABSOLUTE MONOCYTES (AUTO) 0.3 10^3/uL (0.1-1.4); BASOPHILS % (AUTO) 0.6 % (0-2); EOSINOPHILS % (AUTO) 0.1 % (0-6); HEMATOCRIT 34.4 % (36.0-47.0); HEMOGLOBIN 11.6 g/dL (12.0-15.5); LYMPHOCYTES % (AUTO) 41.9 % (13-45); MEAN CORPUSCULAR HGB CONC 33.6 g/dL (32.0-36.0); MEAN CORPUSCULAR VOLUME 86 fl (80-97); MONOCYTES % (AUTO) 8.6 % (3-13); PLATELET COUNT 281 10^3/uL (150-450); RED CELL DISTRIBUTION WIDTH 14.4 % (11.5-14.0); SEGMENTED NEUTROPHILS % (AUTO) 48.8 % (42-78); TOTAL CELLS COUNTED % (AUTO) 100 %
[2020-05-24 06:52] LABS: ALBUMIN 3.6 g/dL (3.5-5.0); ALKALINE PHOSPHATASE 68 U/L (38-126); ANION GAP 6 (5-19); ASPARTATE AMINO TRANSFERASE 25 U/L (14-36); BILIRUBIN,DIRECT 0.1 mg/dL (0.0-0.4); BILIRUBIN,TOTAL 0.4 mg/dL (0.2-1.3); BLOOD UREA NITROGEN 22 mg/dL (7-20); CARBON DIOXIDE 25 mmol/L (22-30); CHLORIDE 105 mmol/L (98-107); GLUCOSE 99 mg/dL (75-110); POTASSIUM 3.6 mmol/L (3.6-5.0); TOTAL PROTEIN 6.8 g/dL (6.3-8.2)
[2020-05-24] MEDS: INSULIN LISPRO 100 UNIT/ML 3 ML VIAL SUBCUT SCH ×4 (08:04→22:38)
[2020-05-24] MEDS: ASPIRIN 81 MG TABLET, CHEWABLE PO SCH (09:36)
--- NOTE | 2020-05-24 09:44 | EKG REPORT ---
SEVERITY:- ABNORMAL ECG - SINUS RHYTHM PROBABLE LEFT ATRIAL ABNORMALITY LVH WITH SECONDARY REPOLARIZATION ABNORMALITY ANTERIOR Q WAVES, POSSIBLY DUE TO LVH LATERAL LEADS ARE ALSO INVOLVED : Confirmed by: Aydee Dejesus MD 24-May-2020 09:44:10
[2020-05-24] MEDS ORDERED: ENOXAPARIN SODIUM INJ 80 MG/0.8 ML DISP.SYRIN SUBCUT SCH (10:00)
--- NOTE | 2020-05-24 10:13 | RADIOLOGY REPORT (SQ) ---
EXAM DESCRIPTION: CHEST SINGLE VIEW IMAGES COMPLETED DATE/TIME: 05/24/2020 8:22 am REASON FOR STUDY: chest pain COMPARISON: 05/13/2019 EXAM PARAMETERS: NUMBER OF VIEWS: One view. TECHNIQUE: Single frontal radiographic view of the chest acquired. RADIATION DOSE: NA LIMITATIONS: None. FINDINGS: LUNGS AND PLEURA: No opacities, masses or pneumothorax. No pleural effusion. MEDIASTINUM AND HILAR STRUCTURES: No masses. Contour normal. HEART AND VASCULAR STRUCTURES: Heart normal in size. Normal vasculature. BONES: No acute findings. HARDWARE: None in the chest. OTHER: No other significant finding. IMPRESSION: NO ACUTE RADIOGRAPHIC FINDING IN THE CHEST. TECHNICAL DOCUMENTATION: JOB ID: [id number] 2010 [employer]- All Rights Reserved Reading location - IP/workstation name: [email or web address]
--- NOTE | 2020-05-24 10:19 | RADIOLOGY REPORT (SQ) ---
EXAM DESCRIPTION: CT HEAD WITHOUT IMAGES COMPLETED DATE/TIME: 05/24/2020 7:55 am REASON FOR STUDY: presyncope COMPARISON: None. TECHNIQUE: Axial images acquired through the brain without intravenous contrast. Images reviewed wi th bone, brain and subdural windows. Additional sagittal and coronal reconstructions were generated. Images stored on PACS. All CT scanners at this facility use dose modulation, iterative reconstruction, and/or weight based d osing when appropriate to reduce radiation dose to as low as reasonably achievable (ALARA). [facility]: Dose Right [facility]: CareDose [facility]: Dose Right [facility]: Teradose 4D [facility]: Cinedigm RADIATION DOSE: CT Rad equipment meets quality standard of care and radiation dose reduction techniq ues were employed. CTDIvol: 48.8 mGy. DLP: 1030 mGy-cm. mGy. LIMITATIONS: None. FINDINGS: VENTRICLES: Normal size and contour. CEREBRUM: No masses. No hemorrhage. No midline shift. No evidence for acute infarction. Normal gra y/white matter differentiation. No areas of low density in the white matter. CEREBELLUM: No masses. No hemorrhage. No alteration of density. No evidence for acute infarction. EXTRAAXIAL SPACES: No fluid collections. No masses. ORBITS AND GLOBE: No intra- or extraconal masses. Normal contour of globe without masses. CALVARIUM: No fracture. PARANASAL SINUSES: No fluid or mucosal thickening. SOFT TISSUES: No mass or hematoma. OTHER: Incidental note is made of an apparent partially empty sella. The infundibulum remains in the midline. There is no evidence of mass. The optic chiasm is normal in position and appearance. IMPRESSION: Normal CT appearance of the brain. Incidental note is made of a partially empty sella ; given appearance and patient demographics, this is likely normal variant anatomy. EVIDENCE OF ACUTE STROKE: NO. COMMENT: Quality ID # [id number]: Final reports with documentation of one or more dose reduction techniques (e.g., Automated exposure control, adjustment of the mA and/or kV according to patient size, use of iterative reconstruction technique) TECHNICAL DOCUMENTATION: JOB ID: [id number] 2010 [employer]- All Rights Reserved Reading location - IP/workstation name: [email or web address]
[2020-05-24] MEDS: ACETAMINOPHEN 325 MG TABLET PO PRN (11:57)
--- NOTE | 2020-05-24 15:03 | PDOC CONSULTATION ---
Consultation Consult Date: 05/24/20 Attending physician:: JEAN BARKER Provider Consulted: WILFRIDO MAURICIO Consult reason:: Presyncope History of Present Illness Admission Date/PCP: 05/23/20 23:29 TAM LARSEN DO Patient complains of: Dizziness History of Present Illness: CANDE MENENDEZ is a 59 year old female With the following active problems 1. Coronary artery disease 2. PCI-unknown vessel-[place] 4 years ago 3. Systemic hypertension 4. Dyslipidemia 6. Nicotine dependence 59-year-old lady who I have seen in the office for the same medical problems presented to [facility] yesterday with an episode where. She felt dizzy and went down to the floor. She did not actually have syncope. Mention is also made of the fact that she is reported chest pain but symptoms suggestive of unstable angina. At the present time patient does not endorse any chest pain. She is not complaining of any dizziness. Since admission to the hospital she developed a febrile response. She was placed in isolation and was tested for COVID-19. At the time of my evaluation patient does not report febrile symptoms or malaise. Past Medical History Cardiac Medical History: Reports: Coronary Artery Disease, Hyperlipidema, Hypertension Denies: Myocardial Infarction Pulmonary Medical History: Denies: Asthma, Bronchitis, Chronic Obstructive Pulmonary Disease (COPD), Pneumonia, Tuberculosis Neurological Medical History: Denies: Seizures Endocrine Medical History: Reports: Diabetes Mellitus Type 1, Diabetes Mellitus Type 2 Musculoskeltal Medical History: Denies: Arthritis Psychiatric Medical History: Reports: Depression - anxiety Hematology: Reports: Anemia Past Surgical History Past Surgical History: Reports: Cardiac Catheterization - stentx1 2012, Coronary Stent, Tubal Ligation Denies: Hysterectomy, Pacemaker Social History Smoking Status: Current Every Day Smoker Electronic Cigarette use?: No Frequency of Alcohol Use: None Hx Recreational Drug Use: No Hx Prescription Drug Abuse: No Family History Family History: CAD, Hypertension Parental Family History Reviewed: No - No familial illnesses Children Family History Reviewed: NA Sibling(s) Family History Reviewed.: NA Medication/Allergy Home Medications: Atorvastatin Calcium 40 mg PO QHS 12/20/17 Isosorbide Mononitrate [Imdur 60 mg Tablet.er] 90 mg PO DAILY 12/20/17 Lisinopril/Hydrochlorothiazide [Lisinopril-Hctz 20-25 mg Tab] 1 tab PO DAILY 12/20/17 Metformin HCl [Glucophage 500 mg Tablet] 500 mg PO BIDACBS 12/20/17 Celecoxib [Celebrex 200 mg Capsule] 200 mg PO Q12 05/24/20 Lurasidone HCl [Latuda 40 mg Tablet] 40 mg PO DAILY 05/24/20 Metoprolol Tartrate [Lopressor 25 mg Tablet] 25 mg PO DAILY 05/24/20 Sertraline HCl 25 mg PO DAILY 05/24/20 Trazodone HCl [Desyrel 50 mg Tablet] 50 mg PO DAILY 05/24/20 Allergies/Adverse Reactions: Penicillins Allergy (Mild, Verified 02/20/18 07:19) Sulfa (Sulfonamide Antibiotics) Allergy (Mild, Verified 02/20/18 07:19) Review of Systems Constitutional: PRESENT: as per HPI, fever(s) Cardiovascular: PRESENT: chest pain Respiratory: ABSENT: as per HPI, cough, dyspnea, hemoptysis, sputum, other Neurological: PRESENT: dizziness, other - Presyncope Physical Exam Vital Signs: Temp Pulse Resp BP Pulse Ox 99.6 F 67 16 130/58 H 97 05/24/20 12:55 05/24/20 11:00 05/24/20 11:00 05/24/20 11:00 05/24/20 11:00 Intake & Output 05/23/20 05/24/20 05/25/20 06:59 06:59 06:59 Intake Total 1050 Balance 1050 Weight 68.6 kg General appearance: PRESENT: no acute distress, cooperative, well-developed, well-nourished Head exam: PRESENT: atraumatic, normocephalic Eye exam: PRESENT: conjunctiva pink Mouth exam: PRESENT: dry mucosa Respiratory exam: PRESENT: clear to auscultation carly, symmetrical, unlabored Cardiovascular exam: PRESENT: RRR, +S1, +S2 Pulses: PRESENT: normal radial pulses GI/Abdominal exam: PRESENT: soft Rectal exam: PRESENT: deferred Neurological exam: PRESENT: alert, awake, oriented to person, oriented to place, oriented to time, oriented to situation Psychiatric exam: PRESENT: appropriate affect Skin exam: PRESENT: dry, intact, normal color Results Laboratory Results: 05/24/20 06:05 05/24/20 06:05 05/23/20 05/23/20 05/23/20 20:56 20:56 23:03 WBC 4.7 RBC 3.98 Hgb 11.6 L Hct 34.4 L MCV 86 MCH 29.2 MCHC 33.9 RDW 14.3 H Plt Count 303 Seg Neutrophils % 33.3 L Sodium 134.0 L Potassium 3.1 L Chloride 101 Carbon Dioxide 27 Anion Gap 6 BUN 23 H Creatinine 1.17 Est GFR ( Amer) 58 L Glucose 95 Calcium 9.3 Magnesium Total Bilirubin 0.4 AST 26 Alkaline Phosphatase 73 Total Protein 7.0 Albumin 3.6 Urine Color YELLOW Urine Appearance CLOUDY Urine pH 5.0 Ur Specific [place] 1.019 Urine Protein 30 H Urine Glucose (UA) NEGATIVE Urine Ketones NEGATIVE Urine Blood NEGATIVE Urine Nitrite NEGATIVE Ur Leukocyte Esterase TRACE H Urine WBC (Auto) 9 Urine RBC (Auto) 1 05/24/20 05/24/20 05/24/20 00:14 06:05 06:05 WBC 4.0 RBC 4.00 Hgb 11.6 L Hct 34.4 L MCV 86 MCH 29.0 MCHC 33.6 RDW 14.4 H Plt Count 281 Seg Neutrophils % 48.8 Sodium 135.5 L Potassium 3.6 Chloride 105 Carbon Dioxide 25 Anion Gap 6 BUN 22 H Creatinine 0.98 Est GFR ( Amer) > 60 Glucose 99 Calcium 9.0 Magnesium 1.8 Total Bilirubin 0.4 AST 25 Alkaline Phosphatase 68 Total Protein 6.8 Albumin 3.6 Urine Color Urine Appearance Urine pH Ur Specific [place] Urine Protein Urine Glucose (UA) Urine Ketones Urine Blood Urine Nitrite Ur Leukocyte Esterase Urine WBC (Auto) Urine RBC (Auto) 05/23/20 05/23/20 05/24/20 20:56 20:56 00:15 Creatine Kinase 190 H CK-MB (CK-2) 1.04 Troponin I 0.076 0.067 05/24/20 06:05 Creatine Kinase CK-MB (CK-2) Troponin I 0.054 EKG Comments: Twelve-lead EKG 05/23/2020 Sinus rhythm, left ventricular hypertrophy with repolarization abnormalities, normal AV conduction, QTC is 460 ms Chest x-ray 05/24/2020 No acute radiographic finding Head CT 05/24/[address] appearance of the brain. Cardiac troponin 0.054 0.067 0.076 Twelve-lead EKG 05/13/2019 Sinus or ectopic rhythm. Left ventricular hypertrophy with repolarization abnormality Pharmacologic nuclear stress test 08/31/2019 No evidence of ischemia on EKG No convincing evidence of perfusion defects. Left ventricular ejection fraction 69% Transthoracic echocardiogram Left ventricular ejection fraction of 60 to 65% Mild diastolic dysfunction Trace MR and trace TR Mild pulmonary hypertension There is no pericardial effusion Impressions: Chest X-Ray 05/24/20 00:00 IMPRESSION: NO ACUTE RADIOGRAPHIC FINDING IN THE CHEST. Head CT 05/24/20 00:43 IMPRESSION: Normal CT appearance of the brain. Incidental note is made of a partially empty sella ; given appearance and patient demographics, this is likely normal variant anatomy. EVIDENCE OF ACUTE STROKE: NO. Assessment & Plan - Notes Notes: 1. Coronary artery disease Presently not having chest pain EKG suggestive of left ventricular hypertrophy with repolarization abnormalities Mildly elevated troponins. This could be secondary to left ventricular hypertrophy all due to ongoing infectious process Most recent ischemic evaluation with noninvasive testing was negative and this was performed in August 2019 Would recommend continue aspirin 81 mg daily Continue atorvastatin perhaps at a higher dose of 80 mg daily Continue metoprolol tartrate 25 mg twice daily The patient continues to endorse symptoms suggestive of unstable angina which he is not at the moment would recommend pursuing cardiac catheterization as an outp atient. At the present time with infectious process/fever would not work this up unless she is symptomatic. 2. Presyncope It is possible that the patient was volume depleted and had a presyncopal ep isode EKG shows sinus rhythm Orthostatic vital signs were negative per documentation 3. Fever Blood cultures have been drawn Await results SARS-CoV-2 test is negative
[2020-05-24] MEDS ORDERED: NICOTINE 14 MG/24 HR PATCH.TD24 TD PRN (15:07)
--- NOTE | 2020-05-24 15:08 | PDOC PROGRESS REPORT ---
Subjective Progress Note for:: 05/24/20 Subjective:: Denies chest pain or dizziness at this time. Reason For Visit: PRE SYNCOPE,CP,HYPOTENSION Physical Exam Vital Signs: Temp Pulse Resp BP Pulse Ox 99.6 F 67 16 130/58 H 97 05/24/20 12:55 05/24/20 11:00 05/24/20 11:00 05/24/20 11:00 05/24/20 11:00 Intake & Output 05/23/20 05/24/20 05/25/20 06:59 06:59 06:59 Intake Total 1050 Balance 1050 Weight 68.6 kg General appearance: PRESENT: no acute distress, cooperative Neck exam: ABSENT: JVD Respiratory exam: PRESENT: clear to auscultation carly, symmetrical, unlabored. ABSENT: chest wall tenderness, tachypnea, wheezes Cardiovascular exam: PRESENT: RRR, +S1, +S2. ABSENT: diastolic murmur, systolic murmur, tachycardia GI/Abdominal exam: PRESENT: soft. ABSENT: rebound, rigid, tenderness Neurological exam: PRESENT: alert, awake, oriented to person, oriented to place, oriented to time Psychiatric exam: ABSENT: agitated, anxious Results Laboratory Results: 05/24/20 06:05 05/24/20 06:05 05/23/20 05/23/20 05/23/20 20:56 20:56 23:03 WBC 4.7 RBC 3.98 Hgb 11.6 L Hct 34.4 L MCV 86 MCH 29.2 MCHC 33.9 RDW 14.3 H Plt Count 303 Seg Neutrophils % 33.3 L Sodium 134.0 L Potassium 3.1 L Chloride 101 Carbon Dioxide 27 Anion Gap 6 BUN 23 H Creatinine 1.17 Est GFR ( Amer) 58 L Glucose 95 Calcium 9.3 Magnesium Total Bilirubin 0.4 AST 26 Alkaline Phosphatase 73 Total Protein 7.0 Albumin 3.6 Urine Color YELLOW Urine Appearance CLOUDY Urine pH 5.0 Ur Specific [place] 1.019 Urine Protein 30 H Urine Glucose (UA) NEGATIVE Urine Ketones NEGATIVE Urine Blood NEGATIVE Urine Nitrite NEGATIVE Ur Leukocyte Esterase TRACE H Urine WBC (Auto) 9 Urine RBC (Auto) 1 05/24/20 05/24/20 05/24/20 00:14 06:05 06:05 WBC 4.0 RBC 4.00 Hgb 11.6 L Hct 34.4 L MCV 86 MCH 29.0 MCHC 33.6 RDW 14.4 H Plt Count 281 Seg Neutrophils % 48.8 Sodium 135.5 L Potassium 3.6 Chloride 105 Carbon Dioxide 25 Anion Gap 6 BUN 22 H Creatinine 0.98 Est GFR ( Amer) > 60 Glucose 99 Calcium 9.0 Magnesium 1.8 Total Bilirubin 0.4 AST 25 Alkaline Phosphatase 68 Total Protein 6.8 Albumin 3.6 Urine Color Urine Appearance Urine pH Ur Specific [place] Urine Protein Urine Glucose (UA) Urine Ketones Urine Blood Urine Nitrite Ur Leukocyte Esterase Urine WBC (Auto) Urine RBC (Auto) 05/23/20 05/23/20 05/24/20 20:56 20:56 00:15 Creatine Kinase 190 H CK-MB (CK-2) 1.04 Troponin I 0.076 0.067 05/24/20 06:05 Creatine Kinase CK-MB (CK-2) Troponin I 0.054 Impressions: Chest X-Ray 05/24/20 00:00 IMPRESSION: NO ACUTE RADIOGRAPHIC FINDING IN THE CHEST. Head CT 05/24/20 00:43 IMPRESSION: Normal CT appearance of the brain. Incidental note is made of a partially empty sella ; given appearance and patient demographics, this is likely normal variant anatomy. EVIDENCE OF ACUTE STROKE: NO. Assessment and Plan - Diagnosis (1) Pre-syncope Is this a current diagnosis for this admission?: Yes Plan: Possibly secondary to hypotension. Orthostatic vital sign was negative. We w ill repeat. No focal neurological deficits on physical examination. Patient's antihypertensives are on hold and patient is receiving IV fluid hydration. Monitor on telemetry. (2) Chest pain Qualifiers: Ischemic chest pain type: stable angina pectoris Is this a current diagnosis for this admission?: Yes Plan: Patient has been evaluated by stave jointer Dr. Marmolejo who informs me that patient had a negative stress test around the end of 2018 with no evidence of valvulopathy and normal EF. Indicates that no stress testing is needed at this time. We will continue her usual medications but will need to cut down on her antihypertensives. Mild troponinemia and trended down. No indication for ACS. (3) Fever Is this a current diagnosis for this admission?: Yes Plan: Patient has spiked a one-time fever of 101.7. No clear source of infection has been noted at this time. Chest x-ray is normal. Urinalysis is pretty much negative. Blood cultures have been obtained. COVID-19 test was performed today was negative. Patient denies any GI symptoms. I will continue to monitor and follow-up blood cultures. We will hold off on antibiotics at this time until a more prominent infectious source emerges. Does not appear septic. (4) Bipolar depression Is this a current diagnosis for this admission?: Yes Plan: Continue sertraline, Latuda and trazodone. Outpatient PCP follow-up. (5) CAD (coronary artery disease) Qualifiers: Coronary Disease-Associated Artery/Lesion type: [place] artery Is this a current diagnosis for this admission?: Yes Plan: Continue Lopressor, atorvastatin and aspirin. Has history of stenting. (6) Hypotension Is this a current diagnosis for this admission?: Yes Plan: Suspected to be secondary to patient's antihypertensives. Patient is notably on Imdur 90 mg daily, lisinopril 20 mg and hydrochlorothiazide 25 mg which are all on hold until blood pressure improves. (7) Tobacco abuse Is this a current diagnosis for this admission?: Yes Plan: Nicotine patch provided. - Time Time Spent with patient: Less than 15 minutes
--- NOTE | 2020-05-24 16:41 | RADIOLOGY REPORT (SQ) ---
EXAM DESCRIPTION: VENOUS BILATERAL LOWER IMAGES COMPLETED DATE/TIME: 05/24/2020 4:18 pm REASON FOR STUDY: r/o DVT COMPARISON: None. TECHNIQUE: Dynamic and static carlton scale and color images acquired of both lower extremity venous sy stems. Selected spectral images acquired with additional compression and augmentation maneuvers. Imag es stored on PACS. LIMITATIONS: None. FINDINGS: RIGHT LEG COMMON FEMORAL AND FEMORAL: Normal phasicity, compression and augmentation. No visualized echogenic m aterial on carlton scale. No defects on color images. POPLITEAL: Normal compression and augmentation. No visualized echogenic material on carlton scale. No de fects on color images. CALF VESSELS: Normal compression and augmentation. No visualized echogenic material on carlton scale. No defects on color image. GSV AND SSV: Normal compression. No visualized echogenic material on carlton scale. No defects on color images. ANY DEEP VENOUS INSUFFICIENCY: Not evaluated. ANY EVIDENCE OF POPLITEAL CYST: No. OTHER: No other significant finding. LEFT LEG COMMON FEMORAL AND FEMORAL: Normal phasicity, compression and augmentation. No visualized echogenic m aterial on carlton scale. No defects on color images. POPLITEAL: Normal compression and augmentation. No visualized echogenic material on carlton scale. No de fects on color images. CALF VESSELS: Normal compression and augmentation. No visualized echogenic material on carlton scale. No defects on color images. GSV AND SSV: Normal compression. No visualized echogenic material on carlton scale. No defects on color images. ANY DEEP VENOUS INSUFFICIENCY: Not evaluated. ANY EVIDENCE POPLITEAL CYST: No. OTHER: No other significant finding. IMPRESSION: 1. NO EVIDENCE DVT OR SVT IN EITHER LEG. TECHNICAL DOCUMENTATION: JOB ID: [id number] 2010 [employer]- All Rights Reserved Reading location - IP/workstation name: [email or web address]
[2020-05-24] MEDS: METFORMIN HCL 500 MG TABLET PO SCH (17:08)
[2020-05-24] MEDS: NORMAL SALINE 1000 ML 1,000 ML IV PRN (20:55)
[2020-05-24] MEDS ORDERED: TRAZODONE HCL 50 MG TABLET PO SCH (22:00)
[2020-05-24] MEDS ORDERED: ATORVASTATIN CALCIUM 40 MG TABLET PO SCH (22:00)
[2020-05-25] MEDS: ACETAMINOPHEN 325 MG TABLET PO PRN (04:29)
[2020-05-25 06:05] LABS: ABSOLUTE MONOCYTES (AUTO) 0.2 10^3/uL (0.1-1.4); ABSOLUTE NEUT (AUTO) 1.6 10^3/uL (1.7-8.2); BASOPHILS % (AUTO) 0.7 % (0-2); HEMATOCRIT 33.5 % (36.0-47.0); HEMOGLOBIN 11.5 g/dL (12.0-15.5); LYMPHOCYTES % (AUTO) 52.1 % (13-45); MEAN CORPUSCULAR HEMOGLOBIN 29.2 pg (27.0-33.4); MEAN CORPUSCULAR HGB CONC 34.3 g/dL (32.0-36.0); MEAN CORPUSCULAR VOLUME 85 fl (80-97); MONOCYTES % (AUTO) 6.4 % (3-13); PLATELET COUNT 266 10^3/uL (150-450); RED BLOOD COUNT 3.94 10^6/uL (3.72-5.28); RED CELL DISTRIBUTION WIDTH 14.4 % (11.5-14.0); SEGMENTED NEUTROPHILS % (AUTO) 40.8 % (42-78); TOTAL CELLS COUNTED % (AUTO) 100 %; WHITE BLOOD COUNT 3.9 10^3/uL (4.0-10.5)
[2020-05-25 06:16] LABS: APPEARANCE,URINE CLEAR; BILIRUBIN,URINE NEGATIVE (NEGATIVE); COLOR,URINE YELLOW; GLUCOSE, URINE NEGATIVE (NEGATIVE); KETONES,URINE NEGATIVE (NEGATIVE); LEUKOCYTE ESTERASE,URINE NEGATIVE (NEGATIVE); NITRITE,URINE NEGATIVE (NEGATIVE); PROTEIN,URINE NEGATIVE (NEGATIVE); URINE SPECIFIC GRAVITY 1.016
[2020-05-25 06:19] LABS: ANION GAP 5 (5-19); BLOOD UREA NITROGEN 14 mg/dL (7-20); CALCIUM 8.6 mg/dL (8.4-10.2); CARBON DIOXIDE 25 mmol/L (22-30); CHLORIDE 103 mmol/L (98-107); GLUCOSE 91 mg/dL (75-110); POTASSIUM 3.1 mmol/L (3.6-5.0)
[2020-05-25] MEDS: METFORMIN HCL 500 MG TABLET PO SCH (07:56)
[2020-05-25] MEDS: INSULIN LISPRO 100 UNIT/ML 3 ML VIAL SUBCUT SCH ×2 (07:56→12:24)
[2020-05-25] MEDS: ASPIRIN 81 MG TABLET, CHEWABLE PO SCH (09:54)
[2020-05-25] MEDS: NORMAL SALINE 1000 ML 1,000 ML IV PRN (09:55)
[2020-05-25] MEDS ORDERED: ENOXAPARIN SODIUM INJ 40 MG/0.4 ML DISP.SYRIN SUBCUT SCH (10:00)
[2020-05-25] MEDS ORDERED: LURASIDONE HCL 40 MG TABLET PO SCH (10:00)
[2020-05-25] MEDS ORDERED: SERTRALINE HCL 50 MG TABLET PO SCH (10:00)
[2020-05-25] MEDS ORDERED: METOPROLOL TARTRATE 25 MG TABLET PO SCH (10:00)
[2020-05-25] MEDS ORDERED: LISINOPRIL 10 MG TABLET PO ONE (13:00)
[2020-05-25] MEDS ORDERED: ISOSORBIDE MONONITRATE 30 MG TAB.ER.24H PO SCH (13:00)
[2020-05-25] MEDS ORDERED: POTASSIUM CHLORIDE 10 MEQ TABLET.ER PO SCH (14:00)
--- NOTE | 2020-05-25 14:32 | RADIOLOGY REPORT (SQ) ---
EXAM DESCRIPTION: CT ABD/PELVIS WITH IV ORAL IMAGES COMPLETED DATE/TIME: 05/25/2020 1:06 pm REASON FOR STUDY: fever of unknown origin. Occult infection/malignan COMPARISON: None. TECHNIQUE: CT scan of the abdomen and pelvis performed using helical scanning technique with dynamic intravenous contrast injection. c Oral contrast. Images reviewed with lung, soft tissue, and bone wi ndows. Reconstructed coronal and sagittal MPR images reviewed. Delayed images for evaluation of the u rinary system also acquired. All images stored on PACS. All CT scanners at this facility use dose modulation, iterative reconstruction, and/or weight based d osing when appropriate to reduce radiation dose to as low as reasonably achievable (ALARA). [facility]: Dose Right [facility]: CareDose [facility]: Dose Right [facility]: Teradose 4D [facility]: [employer] CONTRAST TYPE AND DOSE: contrast/concentration: Isovue 350.00 mmol/ml; Total Contrast Delivered: 76. 9 ml; Total Saline Delivered: 64.0 ml RENAL FUNCTION: BUN 14 creatinine 0.78 RADIATION DOSE: CT Rad equipment meets quality standard of care and radiation dose reduction techniq ues were employed. CTDIvol: 5.3 - 6.5 mGy. DLP: 597 mGy-cm.. LIMITATIONS: None. FINDINGS: LOWER CHEST: No significant findings. No nodules or infiltrates. LIVER: Normal size. No masses. No dilated ducts. SPLEEN: Normal size. No focal lesions. PANCREAS: No masses. No significant calcifications. No adjacent inflammation or peripancreatic fluid collections. Pancreatic duct not dilated. GALLBLADDER: No identified stones by CT criteria. No inflammatory changes to suggest cholecystitis. ADRENAL GLANDS: No significant masses or asymmetry. RIGHT KIDNEY AND URETER: No solid masses. No significant calcifications. No hydronephrosis or hyd roureter. LEFT KIDNEY AND URETER: No solid masses. No significant calcifications. No hydronephrosis or hydr oureter. AORTA AND VESSELS: No aneurysm. No dissection. Renal arteries, SMA, celiac without stenosis. RETROPERITONEUM: No retroperitoneal adenopathy, hemorrhage or masses. BOWEL AND PERITONEAL CAVITY: No masses or inflammatory changes. No free fluid or peritoneal masses. APPENDIX: Not identified. PELVIS: Enlarged uterus with a large calcified uterine fibroid. The urinary bladder is not filled. ABDOMINAL WALL: There is a small amount of air in the subcutaneous fat in just to the left of the mid line on image 58 series 5. BONES: No significant or acute findings. OTHER: No significant abnormality. IMPRESSION: 1. There is a small amount of subcutaneous air and about the mid pelvic region just to the left of the midline. There is no defect in the skin. There is slight concern about infection wi th a gas producing organism. 2. No other sign of occult infection. COMMENT: Pertinent findings on the imaging study reported as a CRITICAL RESULT to JEAN Roman at14:20 on 05/25/2020. Category of Critical Result: Air in the subcutaneous fat TECHNICAL DOCUMENTATION: JOB ID: [id number] Quality ID # [id number]: Final reports with documentation of one or more dose reduction techniques (e.g., Au tomated exposure control, adjustment of the mA and/or kV according to patient size, use of iterative reconstruction technique) 2010 [employer]- All Rights Reserved Reading location - IP/workstation name: [email or web address]
--- NOTE | 2020-05-25 15:32 | PDOC DISCHARGE SUMMARY ---
Impression - Admit/DC Date/PCP Admission Date/Primary Care Provider: 05/23/20 23:29 TAM LARSEN DO Discharge Date: 05/25/20 - Discharge Diagnosis (1) Pre-syncope Is this a current diagnosis for this admission?: Yes (2) Chest pain Is this a current diagnosis for this admission?: Yes (3) Viral URI Is this a current diagnosis for this admission?: Yes (4) Fever Is this a current diagnosis for this admission?: Yes (5) Bipolar depression Is this a current diagnosis for this admission?: Yes (6) CAD (coronary artery disease) Is this a current diagnosis for this admission?: Yes (7) Hypotension Is this a current diagnosis for this admission?: Yes (8) Tobacco abuse Is this a current diagnosis for this admission?: Yes - Additional Information Discharge Diet: Cardiac Referrals: WILFRIDO MAURICIO MD [ACTIVE STAFF] - TAM LARSEN DO [Primary Care Provider] - Follow up as needed Prescriptions: Fluticasone Propionate [Flonase Nasal [place] 50 Mcg/[place] 16 gm] 2 sprays NASL Q12 #1 inhaler Isosorbide Mononitrate [Imdur 30 mg Tablet.er] 30 mg PO DAILY #30 tab.er.24h Nitroglycerin [Nitrostat 0.4 mg (1/150 Gr) Tabs 25/Bottle] 1 tab SL Q5MP PRN #1 bottle PRN Reason: Lisinopril [Prinivil 10 mg Tablet] 20 mg PO DAILY 30 Days tablet Home Medications: Atorvastatin Calcium 40 mg PO QHS 12/20/17 Metformin HCl [Glucophage 500 mg Tablet] 500 mg PO BIDACBS 12/20/17 Celecoxib [Celebrex 200 mg Capsule] 200 mg PO Q12 05/24/20 Lurasidone HCl [Latuda 40 mg Tablet] 40 mg PO DAILY 05/24/20 Metoprolol Tartrate [Lopressor 25 mg Tablet] 25 mg PO DAILY 05/24/20 Sertraline HCl 25 mg PO DAILY 05/24/20 Trazodone HCl [Desyrel 50 mg Tablet] 50 mg PO DAILY 05/24/20 Aspirin [Aspirin 81 mg Chewable Tablet] 81 mg PO DAILY #0 tab.chew 05/25/20 Fluticasone Propionate [Flonase Nasal [place] 50 Mcg/Den[place] 16 gm] 2 sprays NASL Q12 #1 inhaler 05/25/20 Isosorbide Mononitrate [Imdur 30 mg Tablet.er] 30 mg PO DAILY #30 tab.er.24h 05/25/20 Lisinopril [Prinivil 10 mg Tablet] 20 mg PO DAILY 30 Days tablet 05/25/20 Nitroglycerin [Nitrostat 0.4 mg (1/150 Gr) Tabs 25/Bottle] 1 tab SL Q5MP PRN #1 bottle 05/25/20 History of Present Illiness History of Present Illness: According to admitting provider: CANDE MENENDEZ is a 59 year old female past medical history of CAD status post PCI x1 stent placement in 2013, hypertension, bipolar depression, hyperlipidemia, tobacco abuse, presented to ED complaining of an episode of passing out. Patient stating that she has been feeling very weak lately but today when getting ready to bed and changing her clothes around 7:30 PM she suddenly felt very weak and fell to the ground, patient called out her daughter who helped her up, and called EMS, patient was given aspirin 324 mg in route to the hospital. As per daughter patient did not lose consciousness and did not have any convulsions or sustain any trauma. She was alert and oriented and answering questions appropriately. Patient denies having any palpitation, shortness of breath or any lightheadedness prior to fall. Patient also complaining of left-sided, dull, nonradiating, chronic chest pain associated with dyspnea on exertion which has not changed recently. Denies any headache, vision changes, numbness, tingling, any focal weakness, nausea, shortness of breath, diarrhea, abdominal pain, recent weight gain, orthopnea, PND, or any urinary symptoms. Denies any recent hospitalization or immobility, denies any lower extremity swelling or pain, denies history of any arrhythmia or DVTs in the past. 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 In the ED she was noted to be hypotensive, with mildly elevated troponins and unchanged EKG. Hospitalist was consulted for admission. Hospital Course Hospital Course: Patient was admitted to the hospital for evaluation of presyncope, fall, chest pain. Regarding her fall head CT was done which was negative for any intracranial bleed. Regarding patient's presyncope, he was thought to be due to hypotension as patient was hypotensive on arrival. Patient received IV fluids with improvement of her blood pressures. Orthostatic vital signs were negative. EKGs and integration manager showed no evidence of arrhythmia. Patient's hypotension was thought to be due to her blood pressure medications. As such I have discontinued her lisinopril-hydrochlorothiazide combination tablet and put on only lisinopril. I have also reduced her Imdur from 90 mg daily to 30 mg daily and instructed patient to monitor blood pressures closely at home before discussing with her doctor about possibly increasing her Imdur back to the prior dose. Patient's blood pressure has normalized today and patient is of fluids. Regarding chest pain, patient was evaluated by her coal chute worker Dr. Wilfrido Mauricio who recommended that there was no need for repeat stress test as patient had just had a stress test at the end of 2018 which was really unremarkable. Refer to cardiology's note for further details. Notably, patient started to spike fevers while she was in the hospital. COVID- 19 rapid test was done which was negative. Patient's only overt symptom was nasal congestion and runny nose. CBC revealed lymphocyte predominance. Patient had minimal abdominal pain but was sent for CT of the abdomen and pelvis to rule out occult infection/malignancy. The CAT scan showed no evidence of infection but did mention a small amount of subcutaneous air in the subcutaneous tissue which radiologist states is about 2 cc in size. Given the location of this finding, it seems to correlate with the site of injection of patient's Lovenox. I have examined patient at that region and she has no worrisome abdominal findings to suggest gas-forming organism infection or necrotizing abdominal infection. As stated, it is likely simply due to subcutaneous introduction of air from the subcutaneous Lovenox injections. Patient's fever is likely secondary to a viral URI and she is being discharged with Flonase. Strict instructions given for follow-up. Physical Exam Vital Signs: Temp Pulse Resp BP Pulse Ox 100.0 F 59 L 17 121/69 99 05/25/20 11:32 05/25/20 11:32 05/25/20 11:32 05/25/20 11:32 05/25/20 11:32 Intake & Output 05/24/20 05/25/20 05/26/20 06:59 06:59 06:59 Intake Total 6305 466 9991 Output Total 300 Balance 9852 586 9140 Weight 68.6 kg 68.6 kg General appearance: PRESENT: no acute distress, cooperative Neck exam: ABSENT: JVD Respiratory exam: PRESENT: clear to auscultation carly, symmetrical, unlabored. A BSENT: tachypnea, wheezes Cardiovascular exam: PRESENT: RRR, +S1, +S2. ABSENT: tachycardia GI/Abdominal exam: PRESENT: normal bowel sounds, soft. ABSENT: ascites, diminished bowel sounds, distended, firm, guarding, hernia, hyperactive bowel sounds, hypoactive bowel sounds, mass, rebound, rigid, tenderness Neurological exam: PRESENT: alert, awake, oriented to person, oriented to place, oriented to time Results Laboratory Results: WBC 3.9 10^3/uL (4.0-10.5) L 05/25/20 05:17 RBC 3.94 10^6/uL (3.72-5.28) 05/25/20 05:17 Hgb 11.5 g/dL (12.0-15.5) L 05/25/20 05:17 Hct 33.5 % (36.0-47.0) L 05/25/20 05:17 MCV 85 fl (80-97) 05/25/20 05:17 MCH 29.2 pg (27.0-33.4) 05/25/20 05:17 MCHC 34.3 g/dL (32.0-36.0) 05/25/20 05:17 RDW 14.4 % (11.5-14.0) H 05/25/20 05:17 Plt Count 266 10^3/uL (150-450) 05/25/20 05:17 Lymph % (Auto) 52.1 % (13-45) H 05/25/20 05:17 Carlton % (Auto) 6.4 % (3-13) 05/25/20 05:17 Eos % (Auto) 0.0 % (0-6) 05/25/20 05:17 Baso % (Auto) 0.7 % (0-2) 05/25/20 05:17 Absolute Neuts (auto) 1.6 10^3/uL (1.7-8.2) L 05/25/20 05:17 Absolute Lymphs (auto) 2.0 10^3/uL (0.5-4.7) 05/25/20 05:17 Absolute Monos (auto) 0.2 10^3/uL (0.1-1.4) 05/25/20 05:17 Absolute Eos (auto) 0.0 10^3/uL (0.0-0.6) 05/25/20 05:17 Absolute Basos (auto) 0.0 10^3/uL (0.0-0.2) 05/25/20 05:17 Seg Neutrophils % 40.8 % (42-78) L 05/25/20 05:17 D-Dimer 1.89 ug/mL (0.00-0.50) H 05/24/20 00:14 Sodium 132.9 mmol/L (137-145) L 05/25/20 05:17 Potassium 3.1 mmol/L (3.6-5.0) L 05/25/20 05:17 Chloride 103 mmol/L (98-107) 05/25/20 05:17 Carbon Dioxide 25 mmol/L (22-30) 05/25/20 05:17 Anion Gap 5 (5-19) 05/25/20 05:17 BUN 14 mg/dL (7-20) 05/25/20 05:17 Creatinine 0.78 mg/dL (0.52-1.25) 05/25/20 05:17 Est GFR ( Amer) > 60 (>60) 05/25/20 05:17 Est GFR (MDRD) Non-Af > 60 (>60) 05/25/20 05:17 Glucose 91 mg/dL (75-110) 05/25/20 05:17 POC Glucose 79 mg/dL (70-110) 05/25/20 11:33 Calcium 8.6 mg/dL (8.4-10.2) 05/25/20 05:17 Magnesium 1.8 mg/dL (1.6-2.3) 05/24/20 00:14 Total Bilirubin 0.4 mg/dL (0.2-1.3) 05/24/20 06:05 Direct Bilirubin 0.1 mg/dL (0.0-0.4) 05/24/20 06:05 Neonat Total Bilirubin Not Reportable 05/24/20 06:05 Neonat Direct Bilirubin Not Reportable 05/24/20 06:05 Neonat Indirect Bili Not Reportable 05/24/20 06:05 AST 25 U/L (14-36) 05/24/20 06:05 ALT 10 U/L (<35) 05/24/20 06:05 Alkaline Phosphatase 68 U/L (38-126) 05/24/20 06:05 Creatine Kinase 190 U/L (30-135) H 05/23/20 20:56 CK-MB (CK-2) 1.04 ng/mL (<4.55) 05/23/20 20:56 Troponin I 0.054 ng/mL 05/24/20 06:05 Total Protein 6.8 g/dL (6.3-8.2) 05/24/20 06:05 Albumin 3.6 g/dL (3.5-5.0) 05/24/20 06:05 Urine Color YELLOW 05/25/20 02:20 Urine Appearance CLEAR 05/25/20 02:20 Urine pH 6.0 (5.0-9.0) 05/25/20 02:20 Ur Specific Kendrick 1.016 05/25/20 02:20 Urine Protein NEGATIVE mg/dL (NEGATIVE) 05/25/20 02:20 Urine Glucose (UA) NEGATIVE mg/dL (NEGATIVE) 05/25/20 02:20 Urine Ketones NEGATIVE mg/dL (NEGATIVE) 05/25/20 02:20 Urine Blood SMALL (NEGATIVE) H 05/25/20 02:20 Urine Nitrite NEGATIVE (NEGATIVE) 05/25/20 02:20 Urine Bilirubin NEGATIVE (NEGATIVE) 05/25/20 02:20 Urine Urobilinogen 4.0 mg/dL (<2.0) H 05/25/20 02:20 Ur Leukocyte Esterase NEGATIVE (NEGATIVE) 05/25/20 02:20 Urine WBC (Auto) 2 /HPF 05/25/20 02:20 Urine RBC (Auto) 1 /HPF 05/25/20 02:20 U Hyaline Cast (Auto) 23 /LPF 05/23/20 23:03 Urine Bacteria (Auto) TRACE /HPF 05/23/20 23:03 Squamous Epi Cells Auto 5 /HPF 05/25/20 02:20 Urine Mucus (Auto) RARE /LPF 05/25/20 02:20 Urine Ascorbic Acid NEGATIVE (NEGATIVE) 05/25/20 02:20 SARS-CoV-2 (PCR) NEGATIVE (NEGATIVE) 05/24/20 12:10 05/23/20 05/24/20 05/24/20 20:56 00:15 06:05 CK-MB (CK-2) 1.04 Troponin I 0.076 0.067 0.054 Impressions: Chest X-Ray 05/24/20 00:00 IMPRESSION: NO ACUTE RADIOGRAPHIC FINDING IN THE CHEST. Head CT 05/24/20 00:43 IMPRESSION: Normal CT appearance of the brain. Incidental note is made of a partially empty sella ; given appearance and patient demographics, this is likely normal variant anatomy. EVIDENCE OF ACUTE STROKE: NO. Venous Doppler Study 05/24/20 04:50 IMPRESSION: 1. NO EVIDENCE DVT OR SVT IN EITHER LEG. Abdomen/Pelvis CT 05/25/20 00:00 IMPRESSION: 1. There is a small amount of subcutaneous air and about the mid pelvic region just to the left of the midline. There is no defect in the skin. There is slight concern about infection with a gas producing organism. 2. No other sign of occult infection. Plan Time Spent: Greater than 30 Minutes Stroke Is this a Stroke Patient?: No Acute Heart Failure - Is this a Heart Failure Patient?: No
[2020-05-25 15:49] VITALS: BP 130/58
--- NOTE | 2020-05-25 22:09 | EKG REPORT ---
SEVERITY:- ABNORMAL ECG - SINUS RHYTHM PROBABLE LEFT ATRIAL ABNORMALITY LVH WITH SECONDARY REPOLARIZATION ABNORMALITY ANTERIOR Q WAVES, POSSIBLY DUE TO LVH ST DEPRESSION, CONSIDER ISCHEMIA, ANT-LAT LDS : Confirmed by: Aydee Dejesus MD 25-May-2020 22:08:06
[2020-05-26] MEDS ORDERED: LISINOPRIL 10 MG TABLET PO SCH (10:00)
== END 2020-05-25 16:50 | disposition home or self-care (01) ==
LOC: ER 20:45 → OBSVTOIN 23:29 → EH 23:29 → INTOOBSV 23:29 → 4S 05-24 01:26
PROVIDERS: ADMIT Internal Medicine; ATTEND Internal Medicine
DX: R55 Syncope and collapse (principal); R07.89 Other chest pain; J06.9 Acute upper respiratory infection, unspecified; R50.9 Fever, unspecified; F31.9 Bipolar disorder, unspecified; I25.10 Atherosclerotic heart disease of native coronary artery without angina pectoris; I95.9 Hypotension, unspecified; E78.5 Hyperlipidemia, unspecified; I10 Essential (primary) hypertension; R06.00 Dyspnea, unspecified; R10.9 Unspecified abdominal pain; R79.89 Other specified abnormal findings of blood chemistry; I27.20 Pulmonary hypertension, unspecified; F17.220 Nicotine dependence, chewing tobacco, uncomplicated; E11.9 Type 2 diabetes mellitus without complications; D64.9 Anemia, unspecified; R00.1 Bradycardia, unspecified; Z79.899 Other long term (current) drug therapy; Z79.84 Long term (current) use of oral hypoglycemic drugs; Z79.82 Long term (current) use of aspirin; Z95.5 Presence of coronary angioplasty implant and graft; Z20.828 Contact with and (suspected) exposure to other viral communicable diseases; Z82.49 Family history of ischemic heart disease and other diseases of the circulatory system
CPT/HCPCS: 93005 ×2; 99285; 96372; 96360; 36415 ×3; 87040; 87086; 82553; 82962 ×2; 82550; 83735; 85025 ×3; 87635; 80048; 80053 ×2; 81001 ×2; 84484 ×2; 85379; 93970; 71045; 70450; 74177; 93010 ×2; 97116; 97161; J2270; J1650 ×3; J3480; J7030 ×3; J3490; C9803; G0378

== ENCOUNTER 2020-06-23 22:41 | Emergency (ER) | payer BC ==
--- NOTE | 2020-06-24 00:14 | ER Document Report ---
ED Medical Screen (RME) - General Stated Complaint: DIZZINESS Time Seen by Provider: 06/24/20 00:04 Primary Care Provider: TAM LARSEN DO [Primary Care Provider] - Follow up as needed Notes: Patient is a 59-year-old female, brought in by ambulance who presents emergency department with a syncopal episode and not wanting to eat, as per daughter. Patient states that she has had some chest pain for the past 3 days. Patient has a history of cardiovascular disease and has a cardiac stent placed. Daughter states that the patient has not ate very much today and ended up vomiting once. Exam: S1, S2. Patient appears slightly lethargic. I have greeted and performed a rapid initial assessment of this patient. A comprehensive ED assessment and evaluation of the patient, analysis of test results and completion of medical decision making process will be conducted by an additional ED providers. TRAVEL OUTSIDE OF THE [place] IN LAST 30 DAYS: No - Related Data Allergies/Adverse Reactions: Penicillins Allergy (Mild, Verified 02/20/18 07:19) Sulfa (Sulfonamide Antibiotics) Allergy (Mild, Verified 02/20/18 07:19) Past Medical History - Social History Chew tobacco use (# tins/day): No Frequency of alcohol use: None Drug Abuse: None - Past Medical History Cardiac Medical History: Reports: Hx Coronary Artery Disease, Hx Hypercholesterolemia, Hx Hypertension Denies: Hx Heart Attack Pulmonary Medical History: Denies: Hx Asthma, Hx Bronchitis, Hx COPD, Hx Pneumonia, Hx Tuberculosis Neurological Medical History: Denies: Hx Cerebrovascular Accident, Hx Seizures Endocrine Medical History: Reports: Hx Diabetes Mellitus Type 1, Hx Diabetes Mellitus Type 2 Renal/ Medical History: Denies: Hx Peritoneal Dialysis Musculoskeltal Medical History: Denies Hx Arthritis Psychiatric Medical History: Reports: Hx Anxiety, Hx Depression - anxiety Past Surgical History: Reports: Hx Cardiac Catheterization - stentx1 2012, Hx Coronary Stent, Hx Tubal Ligation. Denies: Hx Hysterectomy, Hx Pacemaker - Immunizations Hx Diphtheria, Pertussis, Tetanus Vaccination: Yes Physical Exam - Vital signs Vitals: Temp Pulse Resp BP Pulse Ox 99.0 F 59 L 16 114/66 95 06/23/20 22:50 06/23/20 22:50 06/23/20 22:50 06/23/20 22:50 06/23/20 22:50 Course - Vital Signs Vital signs: Temp Pulse Resp BP Pulse Ox 99.0 F 59 L 16 114/66 95 06/24/20 00:09 06/23/20 22:50 06/23/20 22:50 06/23/20 22:50 06/23/20 22:50 Doctor's Discharge - Discharge Referrals: TAM LARSEN DO [Primary Care Provider] - Follow up as needed
[2020-06-24 00:50] LABS: ABSOLUTE MONOCYTES (AUTO) 0.3 10^3/uL (0.1-1.4); EOSINOPHILS % (AUTO) 0.1 % (0-6); HEMOGLOBIN 10.9 g/dL (12.0-15.5); TOTAL CELLS COUNTED % (AUTO) 100 %
[2020-06-24 00:53] LABS: ABSOLUTE LYMPHOCYTES (AUTO) 1.3 10^3/uL (0.5-4.7); ABSOLUTE NEUT (AUTO) 2.5 10^3/uL (1.7-8.2); BASOPHILS % (AUTO) 0.6 % (0-2); HEMATOCRIT 32.4 % (36.0-47.0); LYMPHOCYTES % (AUTO) 32.1 % (13-45); MEAN CORPUSCULAR HEMOGLOBIN 28.7 pg (27.0-33.4); MEAN CORPUSCULAR HGB CONC 33.8 g/dL (32.0-36.0); MEAN CORPUSCULAR VOLUME 85 fl (80-97); MONOCYTES % (AUTO) 6.9 % (3-13); PLATELET COUNT 291 10^3/uL (150-450); RED BLOOD COUNT 3.81 10^6/uL (3.72-5.28); SEGMENTED NEUTROPHILS % (AUTO) 60.3 % (42-78); WHITE BLOOD COUNT 4.1 10^3/uL (4.0-10.5)
[2020-06-24 01:00] LABS: ALBUMIN 3.9 g/dL (3.5-5.0); ALKALINE PHOSPHATASE 76 U/L (38-126); ANION GAP 7 (5-19); ASPARTATE AMINO TRANSFERASE 31 U/L (14-36); BILIRUBIN,TOTAL 0.5 mg/dL (0.2-1.3); BLOOD UREA NITROGEN 14 mg/dL (7-20); CALCIUM 9.4 mg/dL (8.4-10.2); CARBON DIOXIDE 21 mmol/L (22-30); CHLORIDE 106 mmol/L (98-107); GLUCOSE 99 mg/dL (75-110); POTASSIUM 3.9 mmol/L (3.6-5.0); TOTAL PROTEIN 7.5 g/dL (6.3-8.2)
--- NOTE | 2020-06-24 01:22 | RADIOLOGY REPORT (SQ) ---
EXAM DESCRIPTION: XR CHEST 1 VIEW COMPLETED DATE/TME: 06/24/2020 00:13 CLINICAL HISTORY: 59 years, Female, chest pain COMPARISON: X-ray chest 05/24/2020 NUMBER OF VIEWS: TECHNIQUE: LIMITATIONS: None. FINDINGS: There is possible emphysema. No evidence of pulmonary infiltrate or pleural effusion. The heart and mediastinum are unremarkable. Pulmonary vascularity appears normal. There are atherosclerotic changes and tortuosity of the thoracic aorta. There is no significant change, as compared with the prior x-ray(s). IMPRESSION: Possible emphysema. copyright 2010 [employer]- All Rights Reserved
[2020-06-24 01:50] LABS: APPEARANCE,URINE CLOUDY; BILIRUBIN,URINE NEGATIVE (NEGATIVE); GLUCOSE, URINE NEGATIVE (NEGATIVE); KETONES,URINE NEGATIVE (NEGATIVE); LEUKOCYTE ESTERASE,URINE NEGATIVE (NEGATIVE); NITRITE,URINE NEGATIVE (NEGATIVE); PROTEIN,URINE 30 mg/dL (NEGATIVE); URINE SPECIFIC GRAVITY 1.025
[2020-06-24 01:51] LABS: COLOR,URINE YELLOW
[2020-06-24] MEDS ORDERED: NORMAL SALINE 1000 ML 1,000 ML IV ONE (03:19)
--- NOTE | 2020-06-24 03:32 | ER Document Report ---
Entered by SNEHA SZYMANSKI SCRIBE 06/24/20 0304 Acting as scribe for:SADIA DILLARD IV, MD ED General - General Chief Complaint: Syncope Stated Complaint: DIZZINESS Time Seen by Provider: 06/24/20 00:04 Primary Care Provider: TAM LARSEN DO [NO LOCAL MD] - Follow up as needed Mode of Arrival: Medic Information source: Patient, Relative - Daughter Notes: This 59 year old female patient brought in by EMS from home presents to the ED today with complaints of a syncopal episode that occurred yesterday evening. Patient denies changing positions prior to the episode, but states "I felt the strength leave my body" and that she was caught by her daughter. She also reports nonradiating mid-sternal chest pain for the last x3 days, described as a pressure. Daughter at bedside states that the patient took x1 of her SL NTG yesterday evening prior to arrival. Patient is chest pain free at this time. Patient has a history of CAD with x1 stent placed in 2013 at [facility], HTN, HLD, tobacco abuse, and diabetes. She sees Dr. Marmolejo at [facility] for cardiology. Daughter also mentions that the patient has had poor appetite and poor fluid intake for the past x1 week and had x1 episode of clear emesis yesterday. She believes that patient is dehydrated and is refusing to eat due to her depression medications (Latuda and Zoloft). TRAVEL OUTSIDE OF THE [place] IN LAST 30 DAYS: No - Related Data Allergies/Adverse Reactions: Penicillins Allergy (Mild, Verified 02/20/18 07:19) Sulfa (Sulfonamide Antibiotics) Allergy (Mild, Verified 02/20/18 07:19) Past Medical History - General Information source: Relative - Daughter, [facility] Records - Social History Smoking Status: Current Every Day Smoker Cigarette use (# per day): Yes Chew tobacco use (# tins/day): No Smoking Education Provided: No Frequency of alcohol use: None Drug Abuse: None Lives with: Family Family History: Reviewed & Not Pertinent, CAD, Hypertension Patient has suicidal ideation: No Patient has homicidal ideation: No - Past Medical History Cardiac Medical History: Reports: Hx Coronary Artery Disease, Hx Hypercholesterolemia, Hx Hypertension Endocrine Medical History: Reports: Hx Diabetes Mellitus Type 1, Hx Diabetes Mellitus Type 2 Psychiatric Medical History: Reports: Hx Anxiety, Hx Depression Past Surgical History: Reports: Hx Cardiac Catheterization - stent x1 2013, Hx Coronary Stent, Hx Tubal Ligation - Immunizations Hx Diphtheria, Pertussis, Tetanus Vaccination: Yes Hx Pneumococcal Vaccination: 11/23/00 Review of Systems - Review of Systems Constitutional: Weight loss EENT: No symptoms reported Cardiovascular: See HPI, Chest pain, Syncope Respiratory: No symptoms reported Gastrointestinal: See HPI, Vomiting, Poor appetite, Poor fluid intake Genitourinary: No symptoms reported Female Genitourinary: No symptoms reported Musculoskeletal: No symptoms reported Skin: No symptoms reported Hematologic/Lymphatic: No symptoms reported Neurological/Psychological: No symptoms reported -: Yes All other systems reviewed and negative Physical Exam - Vital signs Vitals: Temp Pulse Resp BP Pulse Ox 99.0 F 59 L 16 114/66 95 06/23/20 22:50 06/23/20 22:50 06/23/20 22:50 06/23/20 22:50 06/23/20 22:50 - General General appearance: Alert In distress: None - HEENT Head: Normocephalic, Atraumatic Eyes: Normal Pupils: PERRL - Respiratory Respiratory status: No respiratory distress Chest status: Nontender Breath sounds: Normal Chest palpation: Normal - Cardiovascular Rhythm: Regular Heart sounds: Normal auscultation Murmur: No Friction rub: No Gallop: None auscultated - Abdominal Inspection: Normal Distension: No distension Bowel sounds: Normal Tenderness: Nontender - Abdomen soft Organomegaly: No organomegaly - Back Back: Normal, Nontender - Extremities General upper extremity: Normal inspection General lower extremity: Normal inspection - Neurological Neuro grossly intact: Yes Orientation: AAOx4 Ilana Coma Scale Eye Opening: Spontaneous Ilana Coma Scale Verbal: Oriented Ilana Coma Scale Motor: Obeys Commands Ilana Coma Scale Total: 15 - Psychological Associated symptoms: Normal affect, Normal mood - Skin Skin Temperature: Warm Skin Moisture: Dry Skin Color: Normal Course - Re-evaluation Re-evalutation: 06/24/20 05:20 Results of ED MSE discussed with patient and patient's daughter. All questions were answered prior to discharge. Emergency signs and symptoms, reasons to return to the emergency department discussed with patient and patient's daughter. - Vital Signs Vital signs: Temp Pulse Resp BP Pulse Ox 99.0 F 62 14 125/70 99 06/24/20 00:09 06/24/20 03:26 06/24/20 04:01 06/24/20 04:01 06/24/20 04:01 - Laboratory Result Diagrams: 06/24/20 00:35 06/24/20 00:35 Laboratory results interpreted by me: 06/24/20 06/24/20 06/24/20 00:35 00:35 01:00 Hgb 10.9 L Hct 32.4 L RDW 16.0 H Sodium 134.1 L Carbon Dioxide 21 L Urine Protein 30 H Urine Urobilinogen 4.0 H Urine Ascorbic Acid 20 H - Diagnostic Test Radiology reviewed: Reports reviewed - EKG Interpretation by Me Additional EKG results interpreted by me: 06/24/20 05:20 EKG obtained on 06/24/2020 at 00 43 hours was interpreted by this MD. Findings: Sinus rhythm, normal axis, P waves preceding QRS complexes, QRS complexes appear narrow, there are T wave inversions present in leads V3 through V6. This morphology was also seen on the patient's prior EKG done 05/13/2019. There are no obvious patterns of ST segment elevation or depression present to suggest acute myocardial ischemia or infarction. Impression: Sinus rhythm with persistent T wave inversions and leads V3 through V6 and nonspecific ST segments Discharge - Discharge Clinical Impression: Anorexia, Dehydration, Generalized weakness Condition: Stable Disposition: HOME, SELF-CARE Additional Instructions: Return to the Emergency Department without delay if any worse. HOME CARE INSTRUCTIONS & INFORMATION: Thank you for choosing us for your medical needs. We hope you're satisfied with the care you received. After you leave, you must properly care for your problem and, at the same time, observe its progress. Any condition can change. Some illnesses can change rapidly over hours or days. If your condition worsens, return to the Emergency Department or see your physician promptly. ABOUT YOUR X-RAYS AND EKG'S: If you had an EKG or X-rays taken, they have been read by the Emergency Physician. The X-rays and EKG's will also be read by a Radiologist or Paper Control Clerk within 24 hours. If discrepancies are noted, you will be notified by telephone. Please be certain the ED has a correct telephone number & address where you can be reached. Also, realize that some fractures or abnormalities do not show up on initial X-rays. If your symptoms continue, see your physician. ABOUT YOUR LABORATORY TEST: If you had laboratory tests, the results have been reviewed by the Emergency Physician. Some test results (for example cultures) may not be available for several days. You will be contacted if any test result shows you need additional treatment. Please be certain the ED has a correct telephone number and address where you can be reached. ABOUT YOUR MEDICATIONS: You will receive instructions on how to take your medicine on the prescription label you receive. Additional information may be provided by the Pharmacy. If you have questions afterwards, call the ED for clarification or further instructions. Some prescribed medications may cause drowsiness. Do not perform tasks such as driving a car or operating machinery without consulting your Pharmacist. If you feel you need a refill of pain medication, your condition will need re-evaluation. Please do not call for a refill of any medication. ABOUT YOUR SIGNATURE: Signature of this document acknowledges to followin. Understanding that you received emergency treatment and that you may be released before al medical problems are known or treated. Please be certain the ED has a correct phone number & address where you can be reached. 2. Acknowledgement that you will arrange for follow-up care as recommended. 3. Authorization for the Emergency Physician to provide information to your follow-up Physician in order to maximize your care. AT ANY TIME, IF YOUR SYMPTOMS CHANGE SIGNIFICANTLY OR WORSEN OR YOU DEVELOP NEW SYMPTOMS, RETURN TO THE EMERGENCY DEPARTMENT IMMEDIATELY FOR RE-EVALUATION. OUR GOAL IS TO PROVIDE EXCELLENT MEDICAL CARE! WE HOPE THAT WE HAVE MET YOUR EXPECTATIONS DURING YOUR EMERGENCY DEPARTMENT VISIT AND THAT YOU FEEL YOU HAVE RECEIVED EXCELLENT CARE! Prescriptions: Megestrol Acetate [Megace Es] 625 mg PO DAILY #60 oral.susp Referrals: TAM LARSEN, [NO LOCAL MD] - Follow up as needed I personally performed the services described in the documentation, reviewed and edited the documentation which was dictated to the scribe in my presence, and it accurately records my words and actions.
[2020-06-24 05:33] VITALS: BP 139/77
--- NOTE | 2020-06-24 12:24 | EKG REPORT ---
SEVERITY:- ABNORMAL ECG - SINUS RHYTHM LVH WITH SECONDARY REPOLARIZATION ABNORMALITY ANTERIOR Q WAVES, POSSIBLY DUE TO LVH ST DEPRESSION, CONSIDER ISCHEMIA, ANT-LAT LDS : Confirmed by: Aydee Dejesus MD 24-Jun-2020 12:23:57
== END 2020-06-24 05:51 | disposition home or self-care (01) ==
LOC: ER 22:41
DX: R63.0 Anorexia (principal); E86.0 Dehydration; R53.1 Weakness; R07.9 Chest pain, unspecified; R55 Syncope and collapse; R42 Dizziness and giddiness; R11.10 Vomiting, unspecified; Z79.899 Other long term (current) drug therapy; F32.9 Major depressive disorder, single episode, unspecified; I25.10 Atherosclerotic heart disease of native coronary artery without angina pectoris; I10 Essential (primary) hypertension; E78.5 Hyperlipidemia, unspecified; F17.200 Nicotine dependence, unspecified, uncomplicated; E11.9 Type 2 diabetes mellitus without complications; Z88.0 Allergy status to penicillin; Z88.2 Allergy status to sulfonamides
CPT/HCPCS: 93005; 99284; 96360; 36415; 83735; 85025; 80053; 81001; 84484; 71045; 93010; J7030

== ENCOUNTER 2020-07-13 07:57 | Day surgery (SDC) | payer BC ==
[~2020-07-13 07:57] MED LIST: PROPOFOL INJ 200 MG/20 ML VIAL IV ONE
[2020-07-13] MEDS ORDERED: NA PHOS,M-B/NA PHOS,DI-BA (ADULT) 133 ML ENEMA PR ONE (09:00)
[2020-07-13] MEDS ORDERED: PROPOFOL INJ 200 MG/20 ML VIAL IV ONE (10:19)
--- NOTE | 2020-07-13 10:29 | Operative Report ---
Operative Report DATE OF SURGERY: 07/13/20 Operative Report: The risk, benefits and alternatives of the procedure including the risk of bleeding, perforation requiring surgery have been explained to the patient in detail and informed consent has been obtained. The patient is placed in a left, lateral decubital position. Timeout was called. Propofol medication is administered. Rectal examination is done which did not reveal any masses, tears or fissures. An Olympus videoscope was introduced into the patient's rectum. Scope was then carefully advanced all the way to the cecum. Cecum was identified by the usual anatomical landmarks including the ileocecal valve as well as the appendiceal office. Photodocumentation is obtained. The scope was then sequentially pulled back via the various segments of the colon including the ascending colon, hepatic flexure, transverse colon, splenic flexure, descending colon finally into the rectosigmoid portions of the colon. Retroflexion maneuvers performed. PREOPERATIVE DIAGNOSIS: Personal history of polyp POSTOPERATIVE DIAGNOSIS: Good overall prep. Internal hemorrhoids. Diverticulosis. Mild right colon inflammation status post biopsy OPERATION: Colonoscopy with biopsy SURGEON: CHITRA VILLAR ANESTHESIA: LMAC TISSUE REMOVED OR ALTERED: As noted above. COMPLICATIONS: None. ESTIMATED BLOOD LOSS: None. INTRAOPERATIVE FINDINGS: As noted above. PROCEDURE: Patient tolerated procedure well. No immediate postprocedure complications are noted. Patient is discharged in good condition. Discharge date 07/13/2020. Discharge diet: Regular. Discharge activity: Regular. 2 to 3-week follow-up to discuss findings. Patient is instructed call the office or proceed to the emergency room should there be any further problems or questions. Wait on the pathology. 10-year surveillance colonoscopy or 5 if there is a family history of colon cancer
[2020-07-13 11:03] VITALS: BP 166/99
== END 2020-07-13 11:00 | disposition home or self-care (01) ==
LOC: END 07:57
PROVIDERS: ATTEND Internal Medicine Gastroenterology
DX: Z12.11 Encounter for screening for malignant neoplasm of colon (principal); K57.30 Diverticulosis of large intestine without perforation or abscess without bleeding; K64.8 Other hemorrhoids; K52.9 Noninfective gastroenteritis and colitis, unspecified; E11.8 Type 2 diabetes mellitus with unspecified complications; I10 Essential (primary) hypertension; F17.210 Nicotine dependence, cigarettes, uncomplicated; Z86.010 Personal history of colon polyps; Z79.899 Other long term (current) drug therapy; Z03.818 Encounter for observation for suspected exposure to other biological agents ruled out; Z79.84 Long term (current) use of oral hypoglycemic drugs; Z79.82 Long term (current) use of aspirin
CPT/HCPCS: 45380; 82962; 87635; 88305 ×2; 00812; J3490; J2704; C9803; 812